=== PATIENT | female | born 1950 | race Caucasian/White ===

== ENCOUNTER 2017-09-28 07:15 | Observation (INO) | payer MEDICARE, OTHER ==
--- NOTE | 2017-09-26 13:27 | Diagnostic Imaging Report ---
PROCEDURE: X-RAY CHEST, TWO VIEWS COMPARISON: 08/24/2010 INDICATIONS: PREOPERATIVE CHEST XRAY FOR CERVICAL SPINE SURGERY FINDINGS: Lungs are well-inflated. No focal airspace consolidation, pleural effusion, or pneumothorax. Scattered linear opacities in the lower lungs likely reflect scar or subsegmental atelectasis. Tortuosity and atherosclerotic calcification of the thoracic aorta. Normal heart size. No pulmonary edema. No acute osseous abnormality. CONCLUSION: No acute cardiopulmonary abnormality. Dictated by: Kaleb Talley M.D. on 09/26/2017 at 13:31 Electronically approved by: Kaleb Talley M.D. on 09/26/2017 at 13:31
[2017-09-26 13:36] LABS: BASOPHILS # (AUTO) 0.1 (0.0-0.1); BASOPHILS % 1.2 % (0.0-1.0); EOSINOPHILS # (AUTO) 0.8 (0.0-0.4); EOSINOPHILS % 8.2 % (0.0-6.0); HEMATOCRIT 43.7 % (34.2-44.1); HEMOGLOBIN 14.7 g/dL (12.0-16.0); LYMPHOCYTES # (AUTO) 3.4 (1.0-3.2); MEAN CORPUSCULAR HEMOGLOBIN 31.6 pg (28-32); MEAN CORPUSCULAR HGB CONC 33.6 g/dL (31-35); MONOCYTES # (AUTO) 0.5 (0.2-0.8); MONOCYTES % 4.9 % (4.4-11.3); NEUTROPHILS # (AUTO) 4.7 (2.1-6.9); NEUTROPHILS % 49.6 % (38.7-80.0); PLATELET COUNT 246 x10e3/uL (140-360); RED BLOOD COUNT 4.65 x10e6/uL (3.6-5.1); RED CELL DISTRIBUTION WIDTH 13.8 % (11.7-14.4)
[2017-09-26 13:53] LABS: ANION GAP 12.8 mmol/L (8-16); BLOOD UREA NITROGEN 10 mg/dL (7-26); BUN/CREATININE RATIO 13 (6-25); CALCIUM 9.2 mg/dL (8.4-10.2); CARBON DIOXIDE 27 mmol/L (22-29); CHLORIDE 107 mmol/L (98-107); CREATININE, SERUM 0.79 mg/dL (0.57-1.11); EST GLOMERULAR FILTRATION RATE > 60 ML/MIN (60-); GLUCOSE 91 mg/dL (74-118); POTASSIUM 3.8 mmol/L (3.5-5.1); SODIUM 143 mmol/L (136-145)
[2017-09-26 14:05] LABS: INR 1.02; PROTHROMBIN TIME 12.6 seconds (11.9-14.5)
[~2017-09-28] VITALS: Ht 149.9 cm; Wt 85.7 kg
[~2017-09-28 07:15] MED LIST: ALLEGRA; AMLODIPINE BESYL5 MG PO; ASPIR 8181 MG PO; BENAZEPRIL; BENAZEPRIL HCL10 MG PO; CLARITIN; CYCLOBENZAPRINE10 MG PO; CYMBALTA60 MG; DEXAMETHASONE SOD PHOS INJ 4 MG/ML VIAL IV SCH; DEXILANT; DICYCLOMINE HCL20 MG PO; FENTANYL PATCH; FUROSEMIDE; GABAPENTIN300 MG PO; HYDROCODONE; HYDROMORPHONE HC4 MG PO; LEVOTHYROXINE; LEVOTHYROXINE100 MCG; LEVOTHYROXINE112 MCG PO; LYRICA; LYRICA150 MG; METOCLOPRAMIDE; METOCLOPRAMIDE10 MG PO; MORPHINE PUMP IM; MORPHINE SULFAT30 M1 PO; NORCO 10-325 T1 EACH PO; NORVASC; PANTOPRAZOLE SO40 MG PO; PROAIR HFA INH8.5 GM; TIZANIDINE HCL4 MG; TRAMADOL; ULTRAM50 MG PO
[2017-09-28] MEDS ORDERED: LIDOCAINE HCL (LTA) 4 ML SOLN ONE (07:22)
[2017-09-28] MEDS ORDERED: ACETAMINOPHEN 1000 MG/100 ML 100 ML IV ONE (07:22)
[2017-09-28] MEDS ORDERED: CEFAZOLIN SOD 1 GM VIAL ONE (08:16)
[2017-09-28] MEDS ORDERED: THROMBIN FOR SOLN 5,000 UNIT VIAL ONE (09:47)
[2017-09-28] MEDS ORDERED: BACITRACIN 50,000 UNIT VIAL ONE (09:47)
[2017-09-28] MEDS ORDERED: BUPIVACAINE 0.5%/EPI 30 ML SDV INJ ONE (09:47)
[2017-09-28] MEDS ORDERED: GELATIN SPONGE SZ 100 ONE (09:47)
[2017-09-28] MEDS: LACTATED RINGER'S 1,000 ML IV SCH ×2 (11:56→21:33)
[2017-09-28] MEDS ORDERED: HYDROMORPHONE 2MG/ML INJ IV PRN (12:00)
[2017-09-28] MEDS ORDERED: ACETAMINOPHEN 325 MG TAB PO PRN (12:00)
[2017-09-28] MEDS ORDERED: PROMETHAZINE HCL (IM) 25 MG/ML VIAL IM PRN (12:00)
[2017-09-28] MEDS ORDERED: OXYCODONE/ACETAMINOPHEN 5-325 1 EACH TABLET PO PRN (12:00)
[2017-09-28] MEDS ORDERED: ZOLPIDEM TARTRATE 5 MG TAB PO PRN (12:00)
[2017-09-28] MEDS ORDERED: ONDANSETRON HCL INJ 2 MG/ML VIAL IV PRN (12:00)
[2017-09-28] MEDS ORDERED: HYDROCODONE/APAP 10MG-325MG TAB PO PRN (12:00)
[2017-09-28] MEDS ORDERED: MAGNESIUM/ALUMINUM/SIMETHICONE 30 ML UDC PO PRN (12:00)
[2017-09-28] MEDS ORDERED: MORPHINE SULFATE 5 MG/ML VIAL IM PRN (12:00)
[2017-09-28] MEDS ORDERED: CARISOPRODOL 350 MG TAB PO PRN (12:00)
[2017-09-28] MEDS ORDERED: ALBUTEROL SULF 0.083% NEB SOLN 3 ML NEB ONE (12:29)
--- NOTE | 2017-09-28 13:24 | Operative Report ---
DATE OF PROCEDURE: September 28, 2017 PREOPERATIVE DIAGNOSIS: C4-C5 spondylosis and spinal stenosis with radiculopathy, M50.121. POSTOPERATIVE DIAGNOSIS: C4-C5 spondylosis and spinal stenosis with radiculopathy, M50.121. PROCEDURES 1. C4-5 anterior cervical diskectomy, microsurgical osteophyte resection and allograft fusion, 01292. 2. Preparation of [employer] cortical cancellous allograft, 13311. 3. C4-C5 anterior cervical plating with Synthes ZPN plate, 90812. ANESTHESIA: General. INDICATIONS: The patient is a woman who has previously undergone a noninstrumented C5-6 fusion in the past. She now presents with large disk osteophyte complex at C4-5 above the level of her previous fusion with cervical radiculopathy and was taken to the operating room for anterior cervical decompression and fusion. PROCEDURE: After induction of general anesthesia, the patient was placed on the operating table in supine position. The right side of the neck was prepped and draped in sterile fashion. The fluoroscopic C-arm was positioned in cross-table lateral orientation. A transverse incision was created on the right side of the neck superimposed on the C4-5 disk space as determined by fluoroscopy. The platysma was divided in line with the incision. A subplatysmal dissection was carried out. An avascular plane of dissection was developed medial to the sternocleidomastoid muscle and was followed medial to the carotid sheath to the anterior border of the cervical spine. The deep cervical fascia was opened. The esophagus was retracted to the left. The attachments of the longus coli muscles to the anterolateral aspects of the vertebral bodies of C4 and C5 were divided. The anterior longitudinal ligament was resected. [place] posts were inserted into C4 and C5. The [place] distractor was used to distract the disk space. The anterior annulus of the disk was incised with a #11 blade. The contents of the C4-5 disk were thoroughly evacuated with angled curets and pituitary rongeurs. The posterior osteophytes were meticulously drilled with a 2-mm cutting bur on a high-speed drill until they were completely removed. The posterior annulus of the disk, the herniated disk material and the posterior longitudinal ligament were resected layer by layer until the dura was fully exposed and decompressed. The medial aspects of the uncinate processes were resected bilaterally to further expose and decompress the origins of the corresponding nerve roots. After satisfactory decompression had been achieved, the endplates were prepared for fusion. The disk space was sized and found to be 8 mm in height. A piece of MTF cortical cancellous allograft measuring 8 mm in thickness was selected and prepared in saline and loaded onto a [employer] ZPN plate. The construct was inserted into C4-5 disk space under distraction and fluoroscopic guidance. The distraction was released. The distraction posts were removed. The plate was then screwed to the endplates of C4 and C5 with 2 pairs of 16-mm screws. All screws were locked. An excellent construct was obtained. The wound was copiously irrigated with Bacitracin solution. Meticulous hemostasis was secured. Retractor was removed. Platysma was closed with 3-0 Vicryl sutures. The skin was closed with 4-0 Monocryl sutures in subcuticular fashion. Steri-Strips and a dressing were applied. The patient was awakened, extubated and taken to the postanesthesia care unit in stable condition. No intraoperative complications were encountered. Estimated blood loss was 10 mL. Job#: [id number]
[2017-09-28] MEDS ORDERED: CEFAZOLIN SOD 1 GM/D5W 50ML 50 ML IV SCH (14:00)
[2017-09-28] MEDS ORDERED: CEFAZOLIN SOD 1 GM VIAL IV SCH (14:00)
[2017-09-28 14:21] VITALS: BP 170/83
[2017-09-28] MEDS: CYCLOBENZAPRINE HCL 10 MG TAB PO SCH ×2 (14:24→22:18)
[2017-09-28] MEDS: GABAPENTIN 300 MG CAP PO SCH ×2 (14:25→18:50)
[2017-09-28] MEDS: TRAMADOL HCL 50 MG TAB PO SCH ×2 (14:25→18:50)
[2017-09-28 15:05] VITALS: BP 170/83
[2017-09-28] MEDS: CEFAZOLIN SOD 1 GM VIAL IV SCH (16:10)
[2017-09-28] MEDS: BENAZEPRIL HCL 10 MG TAB PO SCH (16:10)
[2017-09-28] MEDS ORDERED: GLYCOPYRROLATE INJ 1MG/ 5 ML SYR ONE (17:55)
[2017-09-28] MEDS ORDERED: ROCURONIUM BROMIDE 10 MG/ML 5ML VIAL ONE (17:55)
[2017-09-28] MEDS ORDERED: DEXAMETHASONE SOD PHOS INJ 4 MG/ML VIAL ONE (17:55)
[2017-09-28] MEDS ORDERED: LIDOCAINE HCL 2% LOCAL INJ 5 ML SDV VIAL INJ ONE (17:55)
[2017-09-28] MEDS ORDERED: SEVOFLURANE INHAL SOLN 250 ML PEN BTL ONE (17:55)
[2017-09-28] MEDS ORDERED: NEOSTIGMINE 5 MG/5ML SYR ONE (17:55)
[2017-09-28] MEDS ORDERED: PROPOFOL IV EMULSION 10 MG/ML 20 ML VIAL ONE (17:55)
[2017-09-28] MEDS ORDERED: LIDOCAINE HCL 2% JELLY 5 ML TUBE ONE (17:55)
[2017-09-28] MEDS ORDERED: ONDANSETRON HCL INJ 2 MG/ML VIAL ONE (17:55)
[2017-09-28] MEDS ORDERED: FENTANYL CITRATE/PF 100MCG/2 ML INJ ONE (18:03)
[2017-09-28] MEDS ORDERED: MIDAZOLAM HCL 2 MG/2 ML VIAL ONE (18:03)
[2017-09-28] MEDS ORDERED: GUAIFENESIN/DEXTROMETHORPHAN LIQD 5 ML UDC NG PRN ×2 (18:45→19:15)
[2017-09-28 20:00] VITALS: BP 127/84
[2017-09-28] MEDS: CEPACOL SORE THROAT LOZENGES PO PRN (20:33)
[2017-09-28 20:43] VITALS: BP 127/84
[2017-09-28] MEDS ORDERED: DIPHENHYDRAMINE HCL INJ 50 MG/ML VIAL IV ONE (20:45)
[2017-09-28] MEDS ORDERED: DIPHENHYDRAMINE HCL INJ 50 MG/ML VIAL IV PRN (20:45)
[2017-09-28] MEDS ORDERED: DEXAMETHASONE SOD PHOS INJ 4 MG/ML VIAL IV ONE (20:45)
[2017-09-28] MEDS ORDERED: DEXAMETHASONE SOD PHOS INJ 4 MG/ML VIAL IV SCH (22:00)
[2017-09-29] VITALS: BP 127/68
[2017-09-29] MEDS: TRAMADOL HCL 50 MG TAB PO SCH ×2 (00:37→06:07)
[2017-09-29] MEDS: GABAPENTIN 300 MG CAP PO SCH ×2 (00:37→06:07)
[2017-09-29] MEDS: DEXAMETHASONE SOD PHOS INJ 4 MG/ML VIAL IV SCH ×2 (01:31→06:07)
[2017-09-29] MEDS: CEFAZOLIN SOD 1 GM VIAL IV SCH ×2 (01:31→08:08)
[2017-09-29 04:00] VITALS: BP 107/58
[2017-09-29] MEDS: CYCLOBENZAPRINE HCL 10 MG TAB PO SCH (06:07)
[2017-09-29 08:00] VITALS: BP 120/66
[2017-09-29] MEDS: BENAZEPRIL HCL 10 MG TAB PO SCH (08:08)
[2017-09-29] MEDS: CEPACOL SORE THROAT LOZENGES PO PRN (08:37)
[2017-09-29] MEDS ORDERED: AMLODIPINE BESYLATE 10 MG TAB PO SCH (09:00)
[2017-09-29] MEDS ORDERED: LEVOTHYROXINE SODIUM 112 MCG TAB PO SCH (09:00)
[2017-09-29 09:03] VITALS: BP 120/66
--- NOTE | 2017-09-29 09:46 | Diagnostic Imaging Report ---
PROCEDURE: X-RAY CERVICAL SPINE, TWO VIEWS COMPARISON:None. INDICATIONS:STATUS POST CERVICAL SPINE SURGERY FINDINGS: See conclusion. CONCLUSION: AP and lateral views of the cervical spine from the skull base to C7 show anterior cervical spine disc spacer and oblique screws at C4-C5. Old fusion of C5-C6 is noted. The visualized vertebral bodies are well-aligned. There is mild pre-vertebral soft-tissue swelling consistent with recent surgery. Bethel Rapp D.O. Dictated by: Bethel Rapp D.O. on 09/29/2017 at 9:51 Electronically approved by: Bethel Rapp D.O. on 09/29/2017 at 9:51
== END 2017-09-29 11:30 | disposition home or self-care (01) ==
LOC: OR 07:15 → PACU V 12:03 → IMCU 13:12
PROVIDERS: ADMIT Neurological Surgery; ATTEND Neurological Surgery
DX: M50.121 Cervical disc disorder at C4-C5 level with radiculopathy (principal); I10 Essential (primary) hypertension; E03.9 Hypothyroidism, unspecified; R12 Heartburn; E66.9 Obesity, unspecified; M79.7 Fibromyalgia; G89.29 Other chronic pain; J44.9 Chronic obstructive pulmonary disease, unspecified; K21.9 Gastro-esophageal reflux disease without esophagitis
CPT/HCPCS: 20931; 22551; 22845; 36415; 71046; 72040; 77003; 80048; 85025; 85610; 85730; 86850; 86900; 88304; 93005; G0378 ×2; J0690 ×2; J1100 ×2; J1170; J1200; J2001 ×2; J2250; J2270; J2405 ×2; J3490; J7120

== ENCOUNTER 2018-02-12 14:15 | Inpatient (IN) | payer MEDICARE, OTHER ==
[~2018-02-12] VITALS: Ht 154.9 cm; Wt 87.1 kg
[~2018-02-12 14:15] MED LIST changes: -DEXAMETHASONE SOD PHOS INJ 4 MG/ML VIAL IV SCH
--- OUTSIDE RECORDS SUMMARY | 2018-02-12 14:19 | XMS REPORT | Continuity of Care Document ---
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 [facility] Low back pain<sup>3</sup> Active 10/11/2013 Problem 09/16/2017 Data migrated from [employer] on 11/11/14. [facility] Lumbar radiculopathy<sup>4</sup> Active 10/11/2013 Problem 09/16/2017 Data migrated from [employer] on 11/11/14. [facility] CHRONIC PAIN SYNDROME Active 10/09/2013 [facility] INTRATHECAL PUMP TRIAL, OBSERVATIONAL FO Active 08/26/2013 [facility] 338.4 Active 08/26/2013 [facility] Back pain Active Problem 09/16/2017 [facility] Chronic pain<sup>1</sup> Active Problem 09/16/2017 chronic pain syndrome [facility] Hypertension Active Problem 09/16/2017 [facility] Hypothyroidism Active Problem 09/16/2017 [facility] Pain Active Problem 09/16/2017 [facility] Peripheral neuropathy Active Problem 09/16/2017 [facility] Reflux Active Problem 09/16/2017 [facility] CHRONIC PAIN SYNDROME Active [facility] CERVICAL DISC DISORDER, UNSP, UNSPECIFIE Active [facility] Medications Medication Details Route Status Patient Instructions Ordering Provider Order Date Source Oxycodone Hydrochloride 5 MG Oral Tablet 10 mg, Route: PO, Drug form: TAB, ONCE, Dosing Weight 82.273, kg, PRN Pain Score 7-10, Start date: 11/26/13 18:05:00 Inactive 11/26/2013 [facility] Dilaudid 1 mg, Route: IV, ONCE, Dosing Weight 82.273, kg, PRN Pain, Start date: 11/26/13 18:04:00 Inactive 11/26/2013 [facility] Metoprolol 1 mg, Route: IVP, Q5Min, Dosing Weight 82.273, kg, PRN Other -See Comment, Start date: 11/26/13 17:34:00, Duration: 5 doses or times, Stop date: Limited # of times Inactive 11/26/2013 [facility] Acetaminophen 1,000 mg, Route: IVPB, Drug form: INJ, ONCE, Dosing Weight 82.273, kg, PRN Pain Score 1-3, Start date: 11/26/13 17:34:00, Duration: 1 doses or times, Stop date: Limited # of times Inactive 11/26/2013 [facility] Hydromorphone 0.5 mg, Route: IVP, Q5Min, Dosing Weight 82.273, kg, PRN Pain Score 7-10, Start date: 11/26/13 17:34:00, Duration: 4 doses or times, Stop date: Limited # of times Inactive 11/26/2013 [facility] Ondansetron 4 mg, Route: IVP, ONCE, Dosing Weight 82.273, kg, PRN Nausea & Vomiting, Start date: 11/26/13 17:34:00 Inactive 11/26/2013 [facility] Diphenhydramine 12.5 mg, Route: IVP, Drug form: INJ, Q6H, Dosing Weight 82.273, kg, PRN Itching, Start date: 11/26/13 17:34:00, Duration: 30 day, Stop date: 12/26/13 17:33:00 Inactive 11/26/2013 [facility] Ondansetron 4 MG Oral Tablet [Zofran] 4 mg=1 tab, PO, BID, # 10 tab, 0 Refill(s) Active 11/26/2013 [facility] Acetaminophen 325 MG / Hydrocodone Bitartrate 10 MG Oral Tablet [Downing 10/325] 1-2 tab, PO, Q4-6H, Pain, # 30 tab, 0 Refill(s) Active 11/26/2013 [facility] Cephalexin 500 MG Oral Capsule [Keflex] 500 mg=1 cap, PO, TID, # 30 cap, 0 Refill(s) Active 11/26/2013 [facility] Senna-gen 8.6 mg oral tablet 17.2 mg=2 tab, PO, Bedtime, for constipation, # 100 tab, 0 Refill(s) Active 11/26/2013 [facility] ceFAZolin 2 gm, 50 mL, Route: IVPB, Drug form: INJ, PRE OP, Start date: 11/26/13 2:00:00, Duration: 1 day, Stop date: 11/27/13 1:59:00 Inactive 11/26/2013 [facility] gabapentin 300 MG Oral Capsule 300 mg, 1 cap, Route: PO, Drug form: CAP, Bedtime, Dosing Weight 79.545, kg, Start date: 09/04/13 21:00:00, Duration: 30 day, Stop date: 10/03/13 21:00:00Notes: (Same as: Neurontin) Inactive 09/05/2013 [facility] Dicyclomine 20 mg, 1 tab, Route: PO, Drug form: TAB, TID, Dosing Weight 79.545, kg, Start date: 09/04/13 9:00:00, Duration: 30 day, Stop date: 10/03/13 17:00:00Notes: (Same as: Bentyl) Inactive 09/04/2013 [facility] benazepril 10 mg, Route: PO, Drug form: TAB, BID, Dosing Weight 79.545, kg, Start date: 09/04/13 9:00:00, Duration: 30 day, Stop date: 10/03/13 17:00:00 No Longer Active 09/04/2013 [facility] Amlodipine 5 mg, 1 tab, Route: PO, Drug form: TAB, Daily, Dosing Weight 79.545, kg, Start date: 09/04/13 9:00:00, Duration: 30 day, Stop date: 10/03/13 9:00:00Notes: (Same as: Norvasc) Inactive 09/04/2013 [facility] Prinivil 20 mg, 1 tab, Route: PO, Drug form: TAB, Daily, Start date: 09/04/13 9:00:00, Duration: 30 day, Stop date: 10/03/13 9:00:00Notes: (Same as: Prinivil, Zestril) Inactive 09/04/2013 [facility] pantoprazole 40 mg, 1 tab, Route: PO, Drug form: ECTAB, Daily, Dosing Weight 79.545, kg, Start date: 09/04/13 9:00:00, Duration: 30 day, Stop date: 10/03/13 9:00:00Notes: Tablet should not be chewed or crushed. ( Same as: Protonix) Inactive 09/04/2013 [facility] Metoclopramide 10 MG Oral Tablet 10 mg, 1 tab, Route: PO, Drug form: TAB, TID, Dosing Weight 79.545, kg, Start date: 09/04/13 9:00:00, Duration: 30 day, Stop date: 10/03/13 17:00:00Notes: (Same as: Reglan) Take 30 min before meals Inactive 09/04/2013 [facility] Hydromorphone 4 mg, 2 tab, Route: PO, Drug form: TAB, Q4H, Dosing Weight 79.545, kg, PRN Pain Score 7-10, Start date: 09/03/13 22:35:00, Duration: 30 day, Stop date: 10/03/13 22:34:00Notes: (Same as: Dilaudid) No Longer Active 09/04/2013 [facility] tramadol hydrochloride 50 MG Oral Tablet 50 mg, 1 tab, Route: PO, Drug form: TAB, Q4H, Dosing Weight 79.545, kg, PRN Pain Score 4-6, Start date: 09/03/13 22:35:00, Duration: 30 day, Stop date: 10/03/13 22:34:00Notes: Not to exceed 400mg/day. (Same As: Ultram) No Longer Active 09/04/2013 [facility] tramadol hydrochloride 50 MG Oral Tablet 50 mg=1 tab, PO, Q4H, Pain, # 60 tab, 0 Refill(s) Active 09/04/2013 [facility] gabapentin 300 MG Oral Capsule 300 mg=1 cap, Bedtime, 0 Refill(s) Active 09/04/2013 [facility] hydromorphone 4 mg oral tablet 4 mg=1 tab, PO, Q4H, Pain, 0 Refill(s) Active 09/04/2013 [facility] Calcium Chloride 0.0014 MEQ/ML / Potassium Chloride 0.004 MEQ/ML / Sodium Chloride 0.103 MEQ/ML / Sodium Lactate 0.028 MEQ/ML Injectable Solution 1,000 mL, Rate: 25 ml/hr, Infuse over: 40 hr, Route: IV, Dosing Weight 79.545 kg, Total Volume: 1,000, Start date: 09/03/13 10:57:00, Duration: 30 day, Stop date: 10/03/13 10:56:00 Inactive 09/03/2013 [facility] Morphine 30 mg, 1 tab, Route: PO, Drug form: ERTAB, BID, Dosing Weight 79.545, kg, PRN Pain, Start date: 09/03/13 9:19:00, Duration: 2 day, Stop date: 09/05/13 9:18:00Notes: Do not crush (Same as:Oramorph SR, MS Contin) No Longer Active 09/03/2013 [facility] dicyclomine 20 mg oral tablet 20 mg=1 tab, PO, RTID, # 28 tab, 0 Refill(s) Active 08/29/2013 [facility] morphine 30 mg oral tablet 30 mg=1 tab, PO, BID, Pain, 0 Refill(s) Active 08/29/2013 [facility] pantoprazole 40 mg oral enteric coated tablet 40 mg=1 tab, PO, Daily, # 30 tab, 0 Refill(s) Active 08/29/2013 [facility] benazepril 10 mg oral tablet 10 mg=1 tab, PO, BID, # 30 tab, 0 Refill(s) Active 08/29/2013 [facility] Allergies, Adverse Reactions, Alerts Substance Category Reaction Severity Reaction type Status Date Reported Comments Source iodine<sup>1</sup> Assertion Drug allergy Active 10/09/2013 Data migrated from [employer] on 11/10/14. Originally documented as IODINE. [facility] Adhesive<sup>2</sup> Assertion Drug allergy Active 12/10/2013 Data migrated from [employer] on 05/20/15. Originally documented as ADHESIVE PAPER. [facility] contrast media (iodine-based) Assertion Drug allergy Active [facility] Immunizations Immunization Date Given Site Status Last Updated Comments Source Results Order Name Results Value Reference Range Date Interpretation Comments Source Spine cervical wo contrast MRI Spine cervical wo contrast MRI Clinical Indication: - M50.90 Cervical disc disease. Comparison: None. TECHNIQUE: Multiplanar T1, T2, and STIR weighted MRI of the cervical spine is performed. Full and complete MRI cervical spine without gadolinium contrast exam was performed. Imaging was performed on the 3 Criss magnet. FINDINGS: There is fusion across the C5-C6 disc space, which may be congenital or postsurgical. Otherwise, alignment of the cervical spine is unremarkable. There is no evidence of compression fracture or suspicious marrow replacing lesion. There are multilevel degenerative disc and facet changes, most pronounced at C4- C5 transcribed detail below. There is mild cord compression at C4-C5 without definite evidence of associated cord signal abnormality, allowing for artifact. The paraspinal soft tissues are unremarkable. The neck spaces are symmetric. The major cervical flow voids are intact. The visualized brain parenchyma is unremarkable. There are potential multifocal patchy opacities in the lungs. Chest radiograph is recommended to further assess. SPECIFIC FINDINGS BY LEVEL: C2-C3: There is no significant posterior disc abnormality, facet abnormality, spinal canal stenosis or neural foraminal stenosis. C3-C4: There is posterior disc osteophyte complex and mild left facet arthropathy. This results in mild left neural foraminal stenosis. There is no significant spinal canal stenosis or right neural foraminal stenosis. C4-C5: There is posterior disc osteophyte complex, bilateral uncovertebral hypertrophy, and facet arthropathy. This results in moderate right and severe left neural foraminal stenosis. There is severe spinal canal stenosis with complete effacement of the dorsal and ventral thecal sac and mild cord compression. There is no definite evidence of associated cord signal abnormality, although evaluation is limited by artifact. C5-C6: There is fusion across the intervertebral disc space. There is mild left neural foraminal stenosis. There is no significant spinal canal stenosis or right neural foraminal stenosis. C6-C7: There is posterior disc osteophyte complex, uncovertebral hypertrophy and mild facet arthropathy. There is no significant spinal canal stenosis. There is mild right and moderate left neural foraminal stenosis. C7-T1: There is no significant posterior disc abnormality, spinal canal stenosis or neural foraminal stenosis. IMPRESSION: Degenerative changes of the cervical spine, most pronounced at C4-C5 where there is severe spinal canal stenosis with mild cord compression but no definite evidence of associated cord signal abnormality (noting that evaluation is limited by artifact), moderate right neural foraminal stenosis and severe left neural foraminal stenosis. Findings at other levels, as described above. Consider neurosurgical consultation. Potential multifocal patchy opacities in the lungs. Chest radiograph is recommended to further assess. RECOMMENDATION: Consider neurosurgical consultation. SL: [id number] 09/13/2017 - - Read by: Bipin Herrera MD Dictated Date/time: 09/13/17 10:45 Electronically Signed by: Bipin Herrera MD 09/13/17 11:44 FINAL REPORT [facility] Abdomen AP DX Abdomen AP DX PROCEDURE: Supine abdomen radiographs, 2 views. INDICATION: MRI clearance of pain pump. COMPARISON: None. FINDINGS: Pain pump overlies the subcutaneous tissues of the lateral right lower abdomen, upper pelvis. There is a catheter coursing towards the lumbar spine, L3 region. Surgical clips in the right abdomen. Bowel gas pattern and soft tissue outlines of the abdomen pelvis appear unremarkable. IMPRESSION: 1. No acute abdominal abnormality identified. SL: [id number] 09/13/2017 - - Read by: Yannick Candelaria MD Dictated Date/time: 09/13/17 09:05 Electronically Signed by: Yannick Candelaria MD 09/13/17 09:07 FINAL REPORT [facility] Brain wo contrast MRI Brain wo contrast MRI EXAM: MRI BRAIN WITHOUT CONTRAST DATE: 08/16/2017 12:33 PM CDT INDICATION: - I63.30 Cerebral infarction due to thrombosis of unspecified cerebral artery ADDITIONAL INFORMATION AND CONTRAST: None. COMPARISON: None. TECHNIQUE: Multiplanar, mutisequence MRI of the brain without contrast. FINDINGS: Motion artifact degrades image quality. Diffusion weighted images demonstrate no focal signal abnormality. There are no significant foci of T2/FLAIR signal abnormality within the white or nichole matter. No acute intracranial hemorrhage detected. The ventricles are normal in size and symmetric. No extra-axial fluid collection identified. Nichole- white distinction is preserved. No mass lesion or midline shift detected. The intracranial arterial and venous structures demonstrate normal flow voids. The visible paranasal sinuses and skull base are unremarkable. IMPRESSION: 1. Limited study as above. No definite acute infarct or intracranial hemorrhage detected. SL: [id number] 08/16/2017 - - Read by: Cm Casey MD Dictated Date/time: 08/16/17 14:20 Electronically Signed by: Cm Casey MD 08/16/17 14:23 FINAL REPORT [facility] Carotid artery Doppler bilat US Carotid artery Doppler bilat US Patient Name: JOSE TIMMONS : 1950; Age: 66 years Female MR: [id number] Study: Carotid artery Doppler bilat US 08/16/2017 12:22 PM CDT CLINICAL INDICATION: - carotid stenosis. COMPARISON: None TECHNIQUE: Nichole-scale, color Doppler and spectral Doppler of the carotid arteries was performed. Any reported ICA stenoses indirectly references the distal internal carotid diameter as the denominator for the stenosis measurement, utilizing consensus panel criteria. FINDINGS: RIGHT: Mild calcified plaque within the carotid bulb ICA PSV 85 cm/sec CCA PSV 103 cm/sec ICA/CCA ratio 0.8 Vertebral flow is antegrade. External carotid artery is patent. LEFT: Minimal calcified plaque within the carotid bulb ICA PSV 117 cm/sec CCA PSV 118 cm/sec ICA/CCA ratio 0.99 Vertebral flow is antegrade. External carotid artery is patent. IMPRESSION: RIGHT: ICA stenosis <50% by velocity criteria. LEFT: ICA stenosis <50% by velocity criteria. Consensus panel Doppler US criteria for diagnosis of ICA stenosis: Stenosis (%) ICA PSV (cm/sec) ICA/CCA ratio <50 <125 <2.0 50-69 125-230 2.0-4.0 >70 but less than >230 >4.0 near occlusion Near occlusion High, low, or Variable undetectable SL: [id number] 08/16/2017 - - Read by: Fatemeh Ashton MD Dictated Date/time: 08/16/17 13:00 Electronically Signed by: Fatemeh Ashton MD 08/16/17 13:01 FINAL REPORT [facility] URINE AND STOOL UA Urobilinogen <=1.0 mg/dL 0.1 - 1.0 11/26/2013 [facility] URINE AND STOOL UA RBC 7 /HPF 0 - 2 11/26/2013 [facility] URINE AND STOOL UA Bacteria Occasional /HPF None Seen /HPF 11/26/2013 [facility] URINE AND STOOL UA WBC 56 /HPF 0 - 5 11/26/2013 [facility] URINE AND STOOL UA Mucus Few /LPF None Seen /LPF 11/26/2013 [facility] URINE AND STOOL Micro? Performed *NA* (11/26/13 1:30 PM) 11/26/2013 [facility] URINE AND STOOL UA Color Yellow *NA* (11/26/13 1:30 PM) Yellow 11/26/2013 [facility] URINE AND STOOL UA Turbidity Slight *ABN* (11/26/13 1:30 PM) Clear 11/26/2013 [facility] URINE AND STOOL UA Spec Grav 1.011 <=1.030 11/26/2013 [facility] URINE AND STOOL UA Glucose Negative mg/dL Negative mg/dL 11/26/2013 [facility] URINE AND STOOL UA Ketones Negative mg/dL Negative mg/dL 11/26/2013 [facility] URINE AND STOOL UA Bili Negative *NA* (11/26/13 1:30 PM) Negative 11/26/2013 [facility] URINE AND STOOL UA Blood Small *ABN* (11/26/13 1:30 PM) Negative 11/26/2013 [facility] URINE AND STOOL UA Leuk Est Large *ABN* (11/26/13 1:30 PM) Negative 11/26/2013 [facility] URINE AND STOOL UA Sq Epi Many /LPF Few /LPF 11/26/2013 [facility] URINE AND STOOL UA Nitrite Negative (11/26/13 1:30 PM) Negative 11/26/2013 [facility] URINE AND STOOL UA pH 6.5 5.0 - 8.0 11/26/2013 [facility] URINE AND STOOL UA Protein Negative mg/dL Negative mg/dL 11/26/2013 [facility] BLOOD BANK RESULTS Antibody Scrn Negative (11/26/13 1:20 PM) 11/26/2013 [facility] BLOOD BANK RESULTS ABO/Rh O POS 11/26/2013 [facility] HEMATOLOGY MCH 30.5 pg 27.0 - 31.0 11/26/2013 [facility] HEMATOLOGY Platelet 262 K/CMM 133 - 450 11/26/2013 [facility] HEMATOLOGY MPV 7.8 fL 7.4 - 10.4 11/26/2013 [facility] HEMATOLOGY RDW 14.2 % 11.5 - 14.5 11/26/2013 [facility] HEMATOLOGY MCV 91.7 fL 80.0 - 98.0 11/26/2013 [facility] HEMATOLOGY MCHC 33.2 g/dL 32.0 - 36.0 11/26/2013 [facility] HEMATOLOGY Hct 42.2 % 36.0 - 48.0 11/26/2013 [facility] HEMATOLOGY Hgb 14.0 g/dL 12.0 - 16.0 11/26/2013 [facility] HEMATOLOGY RBC 4.61 M/CMM 4.20 - 5.40 11/26/2013 [facility] HEMATOLOGY WBC 9.5 K/CMM 3.7 - 10.4 11/26/2013 [facility] HEMATOLOGY Basophils # 0.1 K/CMM 0.0 - 0.2 11/26/2013 [facility] HEMATOLOGY Eosinophils # 0.4 K/CMM 0.0 - 0.5 11/26/2013 [facility] HEMATOLOGY Segs-Bands # 5.7 K/CMM 1.5 - 8.1 11/26/2013 [facility] HEMATOLOGY Monocytes # 0.4 K/CMM 0.0 - 0.8 11/26/2013 [facility] HEMATOLOGY Lymphocytes # 2.9 K/CMM 1.0 - 5.5 11/26/2013 [facility] HEMATOLOGY Basophils 1.2 % 0.0 - 1.0 11/26/2013 [facility] HEMATOLOGY Segs 59.7 % 45.0 - 75.0 11/26/2013 [facility] HEMATOLOGY Eosinophils 3.8 % 0.0 - 4.0 11/26/2013 [facility] HEMATOLOGY Monocytes 4.5 % 2.0 - 12.0 11/26/2013 [facility] HEMATOLOGY Lymphocytes 30.8 % 20.0 - 40.0 11/26/2013 [facility] HEMATOLOGY INR 0.97 0.85 - 1.17 11/26/2013 3Interpretive Data: RECOMMENDED RANGES FOR PROTIME INR: 2.0-3.0 for most medical and surgical thromboembolic states. 2.5-3.5 for artificial heart valves and recurrent embolism. INR SHOULD BE USED ONLY FOR PATIENTS ON STABLE ANTICOAGULANT THERAPY. [facility] HEMATOLOGY PTT 38.5 s 22.9 - 35.8 11/26/2013 5Interpretive Data: Heparin Therapeutic Range: 57 - 92 Seconds [facility] HEMATOLOGY PT 12.9 s 12.0 - 14.7 11/26/2013 [facility] ELECTROLYTES AGAP 11.4 meq/L 10.0 - 20.0 11/06/2013 [facility] ELECTROLYTES Calcium Lvl 9.3 mg/dL 8.5 - 10.5 11/06/2013 [facility] ELECTROLYTES CO2 28 meq/L 24 - 32 11/06/2013 [facility] ELECTROLYTES Chloride Lvl 105 meq/L 95 - 109 11/06/2013 [facility] ELECTROLYTES BUN 10 mg/dL 7 - 22 11/06/2013 [facility] ELECTROLYTES Glucose Lvl 83 mg/dL 70 - 99 11/06/2013 2Interpretive Data: Adult reference range values reflect the clinical guidelines of the [place] [employer]. [facility] ELECTROLYTES Potassium Lvl 4.4 meq/L 3.5 - 5.1 11/06/2013 [facility] ELECTROLYTES Sodium Lvl 140 meq/L 135 - 145 11/06/2013 [facility] ELECTROLYTES Creatinine Lvl 0.9 mg/dL 0.5 - 1.4 11/06/2013 [facility] ELECTROLYTES eGFR 69 mL/min/1.73m2 11/06/2013 1Result Comment: The eGFR is calculated using the CKD-EPI formula. In most young, healthy individuals the eGFR will be >90 mL/min/1.73m2. The eGFR declines with age. An eGFR of 60-89 may be normal in some populations, particularly the elderly, for whom the CKD-EPI formula has not been extensively validated. Use of the eGFR is not recommended in the following populations: Individuals with unstable creatinine concentrations, including patients and those with serious co-morbid conditions. Patients with extremes in muscle mass or diet. The data above are obtained from the National Kid[employer] Disease Education Program (NKDEP) which additionally recommends that when the eGFR is used in patients with extremes of body mass index for purposes of drug dosing, the eGFR should be multiplied by the estimated BMI. [facility] HEMATOLOGY Eosinophils 4.8 % 0.0 - 4.0 11/06/2013 [facility] HEMATOLOGY Basophils 0.7 % 0.0 - 1.0 11/06/2013 [facility] HEMATOLOGY Lymphocytes 33.6 % 20.0 - 40.0 11/06/2013 [facility] HEMATOLOGY Monocytes 5.3 % 2.0 - 12.0 11/06/2013 [facility] HEMATOLOGY Segs 55.6 % 45.0 - 75.0 11/06/2013 [facility] HEMATOLOGY Segs-Bands # 6.5 K/CMM 1.5 - 8.1 11/06/2013 [facility] HEMATOLOGY Eosinophils # 0.6 K/CMM 0.0 - 0.5 11/06/2013 [facility] HEMATOLOGY Monocytes # 0.6 K/CMM 0.0 - 0.8 11/06/2013 [facility] HEMATOLOGY Lymphocytes # 3.9 K/CMM 1.0 - 5.5 11/06/2013 [facility] HEMATOLOGY Basophils # 0.1 K/CMM 0.0 - 0.2 11/06/2013 [facility] HEMATOLOGY Platelet 291 K/CMM 133 - 450 11/06/2013 [facility] HEMATOLOGY MPV 8.2 fL 7.4 - 10.4 11/06/2013 [facility] HEMATOLOGY RDW 14.3 % 11.5 - 14.5 11/06/2013 [facility] HEMATOLOGY MCHC 32.8 g/dL 32.0 - 36.0 11/06/2013 [facility] HEMATOLOGY Hct 43.7 % 36.0 - 48.0 11/06/2013 [facility] HEMATOLOGY MCH 30.2 pg 27.0 - 31.0 11/06/2013 [facility] HEMATOLOGY MCV 92.3 fL 80.0 - 98.0 11/06/2013 [facility] HEMATOLOGY RBC 4.73 M/CMM 4.20 - 5.40 11/06/2013 [facility] HEMATOLOGY Hgb 14.3 g/dL 12.0 - 16.0 11/06/2013 [facility] HEMATOLOGY WBC 11.7 K/CMM 3.7 - 10.4 11/06/2013 [facility] HEMATOLOGY PTT 35.2 s 22.9 - 35.8 11/06/2013 6Interpretive Data: Heparin Therapeutic Range: 57 - 92 Seconds [facility] HEMATOLOGY PT 12.1 s 12.0 - 14.7 11/06/2013 [facility] HEMATOLOGY INR 0.90 0.85 - 1.17 11/06/2013 4Interpretive Data: RECOMMENDED RANGES FOR PROTIME INR: 2.0-3.0 for most medical and surgical thromboembolic states. 2.5-3.5 for artificial heart valves and recurrent embolism. INR SHOULD BE USED ONLY FOR PATIENTS ON STABLE ANTICOAGULANT THERAPY. [facility] Vital Signs Vital Sign Value Date Comments Source Diastolic (mm Hg) 73 11/26/2013 [facility] Systolic (mm Hg) 136 11/26/2013 [facility] Respitory Rate 20 11/26/2013 [facility] Heart Rate 99 11/26/2013 [facility] Systolic (mm Hg) 140 11/26/2013 [facility] Diastolic (mm Hg) 59 11/26/2013 [facility] Respitory Rate 12 11/26/2013 [facility] Diastolic (mm Hg) 82 11/26/2013 [facility] Systolic (mm Hg) 141 11/26/2013 [facility] Respitory Rate 13 11/26/2013 [facility] Heart Rate 83 11/26/2013 [facility] BMI Calculated 34.27 11/07/2013 [facility] Height 154.94 cm 11/07/2013 [facility] Weight 82.273 11/07/2013 [facility] Respitory Rate 19 09/04/2013 [facility] Diastolic (mm Hg) 60 09/04/2013 [facility] Systolic (mm Hg) 104 09/04/2013 [facility] Temperature Oral (F) 98.1 F 09/04/2013 [facility] Heart Rate 73 09/04/2013 [facility] Diastolic (mm Hg) 70 09/04/2013 [facility] Systolic (mm Hg) 105 09/04/2013 [facility] Respitory Rate 18 09/04/2013 [facility] Heart Rate 67 09/04/2013 [facility] Temperature Oral (F) 98.1 F 09/04/2013 [facility] Heart Rate 76 09/04/2013 [facility] Respitory Rate 17 09/04/2013 [facility] Systolic (mm Hg) 119 09/04/2013 [facility] Diastolic (mm Hg) 64 09/04/2013 [facility] Temperature Oral (F) 99.1 F 09/04/2013 [facility] Weight 79.545 08/29/2013 [facility] BMI Calculated 33.13 08/29/2013 [facility] Height 154.94 cm 08/29/2013 [facility] Encounters Location Location Details Encounter Type Encounter Number Reason For Visit Attending Provider ADM Date DC Date Status Source [facility] OBS Observation Patient [id number] Martir Micheline 09/03/2013 09/04/2013 [facility] OBS Day Surgery [id number] Joao Rangel Jr 11/26/2013 11/27/2013 [facility] [id number] Nahed Palvadi 08/16/2017 08/17/2017 [facility] Outpatient [id number] Nahed Palvadi 09/13/2017 09/14/2017 [facility] Procedures Procedure Code Date Perfomer Comments Source Cholecystectomy [id number] [facility] Esophagogastroduodenoscopy [id number] [facility] Hysterectomy [id number] [facility] Operation [id number] [facility] Suspension of bladder [id number] [facility]
[2018-02-12] MEDS ORDERED: IPRATROPIUM BROMIDE 0.02% 2.5 ML NEB NEB STA (14:34)
[2018-02-12] MEDS ORDERED: METHYLPREDNISOLONE SOD SUCC 125 MG/2ML VIAL IV ONE (14:45)
[2018-02-12] MEDS ORDERED: ALBUTEROL SULF 0.083% NEB SOLN 3 ML NEB NEB ONE (14:45)
--- NOTE | 2018-02-12 15:40 | Diagnostic Imaging Report ---
EXAM: XR CHEST 1 VIEW DATE: 02/12/2018 2:34 PM INDICATION: Fever COMPARISON: 09/26/2017, no report available FINDINGS: Lines and Tubes: None Heart and Mediastinum: No acute cardiomediastinal findings. Lungs and Pleura: Ill-defined perihilar and basilar opacities poorly evaluated due to underpenetration and body habitus. Not significantly changed. Bones and Soft Tissues: Calcific densities adjacent to right humeral head suggests sequela of calcific tendinosis. IMPRESSION: 1. Ill-defined basilar opacity similar to previous study statistically atelectasis/chronic lung changes. Developing infectious process difficult to exclude. Signed by: Dr. Miguelito Morrison MD on 02/12/2018 3:37 PM
[2018-02-12] MEDS ORDERED: ALBUTEROL/IPRATROPIUM 3 ML NEB NEB PRN (16:00)
[2018-02-12 16:06] LABS: BASOPHILS # (AUTO) 0.1 (0.0-0.1); BASOPHILS % 0.5 % (0.0-1.0); EOSINOPHILS # (AUTO) 0.5 (0.0-0.4); EOSINOPHILS % 3.9 % (0.0-6.0); HEMATOCRIT 46.4 % (34.2-44.1); HEMOGLOBIN 15.4 g/dL (12.0-16.0); LYMPHOCYTES % 23.2 % (18.0-39.1); MEAN CORPUSCULAR HEMOGLOBIN 31.2 pg (28-32); MEAN CORPUSCULAR HGB CONC 33.2 g/dL (31-35); MEAN CORPUSCULAR VOLUME 94.1 fL (81-99); MONOCYTES # (AUTO) 0.8 (0.2-0.8); MONOCYTES % 6.3 % (4.4-11.3); NEUTROPHILS # (AUTO) 8.4 (2.1-6.9); NEUTROPHILS % 65.8 % (38.7-80.0); PLATELET COUNT 308 x10e3/uL (140-360); RED BLOOD COUNT 4.93 x10e6/uL (3.6-5.1); RED CELL DISTRIBUTION WIDTH 13.7 % (11.7-14.4)
[2018-02-12 16:44] LABS: INR 0.87; PARTIAL THROMBOPLASTIN TIME 37.2 seconds (23.8-35.5); PROTHROMBIN TIME 12.7 seconds (11.9-14.5)
[2018-02-12 17:22] LABS: ALANINE AMINOTRANSFERASE 14 IU/L (0-55); ALBUMIN 3.7 g/dL (3.5-5.0); ALKALINE PHOSPHATASE 89 IU/L (40-150); ANION GAP 14.7 mmol/L (8-16); BLOOD UREA NITROGEN 13 mg/dL (7-26); BUN/CREATININE RATIO 15 (6-25); CALCIUM 9.6 mg/dL (8.4-10.2); CARBON DIOXIDE 26 mmol/L (22-29); CHLORIDE 103 mmol/L (98-107); CREATINE KINASE 58 IU/L (29-168); CREATININE, SERUM 0.87 mg/dL (0.57-1.11); EST GLOMERULAR FILTRATION RATE > 60 ML/MIN (60-); GLUCOSE 114 mg/dL (74-118); POTASSIUM 3.7 mmol/L (3.5-5.1); SODIUM 140 mmol/L (136-145)
[2018-02-12] MEDS ORDERED: SPIRONOLACTONE25 MG PO (17:44)
[2018-02-12] MEDS ORDERED: METHYLPREDNISOLONE SOD SUCC 125 MG/2ML VIAL ONE (18:09)
[2018-02-12] MEDS ORDERED: ALBUTEROL/IPRATROPIUM 3 ML NEB NEB ONE (18:15)
[2018-02-12] MEDS: ALBUTEROL/IPRATROPIUM 3 ML NEB NEB SCH ×2 (18:27→20:45)
[2018-02-12] MEDS ORDERED: CEFTRIAXONE SOD 1 GM VIAL IM ONE (19:00)
[2018-02-12 19:25] VITALS: BP 104/62
[2018-02-12] MEDS: GABAPENTIN 300 MG CAP PO SCH (20:40)
[2018-02-12] MEDS: CYCLOBENZAPRINE HCL 10 MG TAB PO SCH (21:16)
[2018-02-12] MEDS: TRAMADOL HCL 50 MG TAB PO SCH (21:30)
[2018-02-13] VITALS (10 sets, daily range): BP systolic 106–127; BP diastolic 49–59
[2018-02-13] MEDS ORDERED: TRAMADOL HCL 50 MG TAB PO SCH
[2018-02-13] MEDS: CYCLOBENZAPRINE HCL 10 MG TAB PO SCH ×3 (06:01→20:24)
[2018-02-13] MEDS: LEVOTHYROXINE SODIUM 112 MCG TAB PO SCH (06:01)
--- NOTE | 2018-02-13 06:56 | Diagnostic Imaging Report ---
EXAM: CHEST SINGLE (PORTABLE), AP 1 view INDICATION: Shortness of breath COMPARISON: AP view of the chest February 12, 2018 FINDINGS: LINES/TUBES: None LUNGS: Bilateral bronchial thickening without consolidation. PLEURA: No effusions or pneumothorax. HEART AND MEDIASTINUM: Normal size and contour. BONES AND SOFT TISSUES: No acute findings. IMPRESSION: Bilateral bronchial thickening without consolidation. Signed by: Dr. Keshia Serrano M.D. on 02/13/2018 6:53 AM
[2018-02-13 07:02] LABS: ALANINE AMINOTRANSFERASE 12 IU/L (0-55); ALBUMIN 3.2 g/dL (3.5-5.0); ALBUMIN/GLOBULIN RATIO 0.9 (0.8-2.0); ALKALINE PHOSPHATASE 76 IU/L (40-150); ANION GAP 12.5 mmol/L (8-16); BLOOD UREA NITROGEN 9 mg/dL (7-26); BUN/CREATININE RATIO 12 (6-25); CALCIUM 9.1 mg/dL (8.4-10.2); CARBON DIOXIDE 26 mmol/L (22-29); CHLORIDE 102 mmol/L (98-107); CREATININE, SERUM 0.76 mg/dL (0.57-1.11); EST GLOMERULAR FILTRATION RATE > 60 ML/MIN (60-); GLUCOSE 140 mg/dL (74-118); POTASSIUM 3.5 mmol/L (3.5-5.1); SODIUM 137 mmol/L (136-145)
[2018-02-13] MEDS: ALBUTEROL/IPRATROPIUM 3 ML NEB NEB SCH ×5 (07:29→23:30)
[2018-02-13] MEDS: BENAZEPRIL HCL 10 MG TAB PO SCH ×2 (09:03→18:27)
[2018-02-13] MEDS: SPIRONOLACTONE 25 MG TAB PO SCH (09:03)
[2018-02-13] MEDS: ASPIRIN 81 MG CHEW TAB PO SCH (09:03)
[2018-02-13] MEDS: GABAPENTIN 300 MG CAP PO SCH ×3 (09:03→20:24)
[2018-02-13] MEDS: AMLODIPINE BESYLATE 5 MG TAB PO SCH (09:03)
[2018-02-13] MEDS: TRAMADOL HCL 50 MG TAB PO SCH (09:15)
[2018-02-13] MEDS: CEFTRIAXONE SOD 1 GM VIAL IV SCH (12:40)
[2018-02-13] MEDS: AZITHROMYCIN 250MG/NS 100 ML 100 ML IV SCH (12:45)
[2018-02-14] VITALS (9 sets, daily range): BP systolic 102–123; BP diastolic 51–71
[2018-02-14] MEDS: ALBUTEROL/IPRATROPIUM 3 ML NEB NEB SCH ×3 (02:50→14:00)
[2018-02-14] MEDS: CYCLOBENZAPRINE HCL 10 MG TAB PO SCH ×3 (05:17→21:45)
[2018-02-14] MEDS: TRAMADOL HCL 50 MG TAB PO SCH ×3 (05:18→17:06)
[2018-02-14] MEDS: LEVOTHYROXINE SODIUM 112 MCG TAB PO SCH (05:18)
[2018-02-14] MEDS: BENAZEPRIL HCL 10 MG TAB PO SCH ×2 (09:00→16:36)
[2018-02-14] MEDS: AMLODIPINE BESYLATE 5 MG TAB PO SCH (09:00)
[2018-02-14] MEDS: GABAPENTIN 300 MG CAP PO SCH ×3 (09:40→21:45)
[2018-02-14] MEDS: ASPIRIN 81 MG CHEW TAB PO SCH (09:40)
[2018-02-14] MEDS: CEFTRIAXONE SOD 1 GM VIAL IV SCH (09:40)
[2018-02-14] MEDS: SPIRONOLACTONE 25 MG TAB PO SCH (09:40)
[2018-02-14] MEDS ORDERED: SODIUM CHLORIDE 0.9% 250ML 250 ML ONE (11:03)
[2018-02-14] MEDS: AZITHROMYCIN 250MG/NS 100 ML 100 ML IV SCH (11:19)
[2018-02-14] MEDS: LEVALBUTEROL HCL SOLN NEBU 1.25 MG/3 ML NEB INH SCH (19:35)
[2018-02-14] MEDS: HYDROCODONE/CHLORPHENIRAMINE 5 ML LIQCR PO SCH (21:45)
[2018-02-15] VITALS (8 sets, daily range): BP systolic 107–133; BP diastolic 51–61
[2018-02-15] MEDS: LEVALBUTEROL HCL SOLN NEBU 1.25 MG/3 ML NEB INH SCH ×4 (01:40→22:00)
[2018-02-15] MEDS: LEVOTHYROXINE SODIUM 112 MCG TAB PO SCH (05:47)
[2018-02-15] MEDS: CYCLOBENZAPRINE HCL 10 MG TAB PO SCH ×3 (05:47→21:02)
[2018-02-15] MEDS: TRAMADOL HCL 50 MG TAB PO SCH ×4 (05:47→17:58)
[2018-02-15] MEDS: BENAZEPRIL HCL 10 MG TAB PO SCH ×2 (09:00→17:18)
[2018-02-15] MEDS: CEFTRIAXONE SOD 1 GM VIAL IV SCH (09:46)
[2018-02-15] MEDS: GABAPENTIN 300 MG CAP PO SCH ×3 (09:46→21:01)
[2018-02-15] MEDS: AMLODIPINE BESYLATE 5 MG TAB PO SCH (09:46)
[2018-02-15] MEDS: SPIRONOLACTONE 25 MG TAB PO SCH (09:46)
[2018-02-15] MEDS: HYDROCODONE/CHLORPHENIRAMINE 5 ML LIQCR PO SCH ×2 (09:46→21:01)
[2018-02-15] MEDS: ASPIRIN 81 MG CHEW TAB PO SCH (09:46)
--- NOTE | 2018-02-15 12:15 | Diagnostic Imaging Report ---
Frontal and lateral views of the chest. HISTORY: Shortness of breath, COPD exacerbation COMPARISON: Chest radiograph February 12, 2018. DISCUSSION: Multiple overlying monitoring leads. Lungs: Increased bibasilar volume loss, right greater than left. Prominence of the central peribronchial interstitial markings. No evidence of a consolidative pneumonia or pulmonary alveolar edema. Pleura: Trace bilateral blunting of the costophrenic angles. Heart and mediastinum: The cardiac silhouette appears unremarkable. Mild prominence of the central pulmonary vasculature. Bones: Right convex curvature of the thoracic spine, compatible with positioning. Incompletely evaluated cervical fixation hardware. IMPRESSION: 1. Right greater than left basilar atelectasis. 2. Findings compatible with a nonspecific bronchitis. 3. Bilateral trace pleural thickening versus trace pleural effusions. Signed by: Dr. Rodrigo Munoz D.O., M.M.M. on 02/15/2018 12:12 PM
[2018-02-15] MEDS: AZITHROMYCIN 250MG/NS 100 ML 100 ML IV SCH (12:56)
[2018-02-15] MEDS: METHYLPREDNISOLONE SOD SUCC 40 MG/ML VIAL IV SCH (21:01)
[2018-02-16] VITALS (7 sets, daily range): BP systolic 93–128; BP diastolic 52–68
[2018-02-16] MEDS: LEVALBUTEROL HCL SOLN NEBU 1.25 MG/3 ML NEB INH SCH ×4 (02:15→20:15)
[2018-02-16 05:52] LABS: BASOPHILS % 0.2 % (0.0-1.0); HEMATOCRIT 41.6 % (34.2-44.1); LYMPHOCYTES # (AUTO) 0.9 (1.0-3.2); LYMPHOCYTES % 10.9 % (18.0-39.1); MEAN CORPUSCULAR HEMOGLOBIN 30.9 pg (28-32); MEAN CORPUSCULAR HGB CONC 32.7 g/dL (31-35); MEAN CORPUSCULAR VOLUME 94.5 fL (81-99); MONOCYTES # (AUTO) 0.1 (0.2-0.8); MONOCYTES % 0.7 % (4.4-11.3); NEUTROPHILS # (AUTO) 7.4 (2.1-6.9); NEUTROPHILS % 87.7 % (38.7-80.0); PLATELET COUNT 305 x10e3/uL (140-360); RED CELL DISTRIBUTION WIDTH 13.3 % (11.7-14.4)
[2018-02-16] MEDS: TRAMADOL HCL 50 MG TAB PO SCH ×4 (05:58→16:39)
[2018-02-16] MEDS: LEVOTHYROXINE SODIUM 112 MCG TAB PO SCH (05:58)
[2018-02-16 05:59] LABS: HEMOGLOBIN 13.6 g/dL (12.0-16.0)
[2018-02-16] MEDS: CYCLOBENZAPRINE HCL 10 MG TAB PO SCH ×2 (06:01→14:17)
[2018-02-16 06:14] LABS: ANION GAP 13.5 mmol/L (8-16); BLOOD UREA NITROGEN 12 mg/dL (7-26); BUN/CREATININE RATIO 14 (6-25); CALCIUM 9.6 mg/dL (8.4-10.2); CARBON DIOXIDE 26 mmol/L (22-29); CHLORIDE 106 mmol/L (98-107); CREATININE, SERUM 0.86 mg/dL (0.57-1.11); EST GLOMERULAR FILTRATION RATE > 60 ML/MIN (60-); GLUCOSE 190 mg/dL (74-118); POTASSIUM 4.5 mmol/L (3.5-5.1); SODIUM 141 mmol/L (136-145)
[2018-02-16] MEDS ORDERED: ONDANSETRON HCL INJ 2 MG/ML VIAL IV PRN (07:45)
[2018-02-16] MEDS: SPIRONOLACTONE 25 MG TAB PO SCH (08:28)
[2018-02-16] MEDS: HYDROCODONE/CHLORPHENIRAMINE 5 ML LIQCR PO SCH ×2 (08:28→20:58)
[2018-02-16] MEDS: METHYLPREDNISOLONE SOD SUCC 40 MG/ML VIAL IV SCH ×2 (08:28→20:58)
[2018-02-16] MEDS: AMLODIPINE BESYLATE 5 MG TAB PO SCH (08:28)
[2018-02-16] MEDS: GABAPENTIN 300 MG CAP PO SCH ×3 (08:28→20:58)
[2018-02-16] MEDS: ASPIRIN 81 MG CHEW TAB PO SCH (08:28)
[2018-02-16] MEDS: BENAZEPRIL HCL 10 MG TAB PO SCH ×2 (08:28→16:39)
[2018-02-16] MEDS: CEFTRIAXONE SOD 1 GM VIAL IV SCH (08:28)
[2018-02-16] MEDS: AZITHROMYCIN 250MG/NS 100 ML 100 ML IV SCH (11:34)
[2018-02-16] MEDS ORDERED: LACTULOSE SYRUP 20 GM/30 ML UDC PO PRN (15:00)
== END 2018-02-16 20:06 | DRG 190 ==
LOC: ER 14:15 → ERHOLD 15:48 → IMCU 02-13 02:29 → OBSVTOIN 02-14 17:08 → MED/SURG 02-14 21:46
DX: J44.0 Chronic obstructive pulmonary disease with (acute) lower respiratory infection (principal); J18.9 Pneumonia, unspecified organism; J45.901 Unspecified asthma with (acute) exacerbation; J44.1 Chronic obstructive pulmonary disease with (acute) exacerbation; E11.9 Type 2 diabetes mellitus without complications; I10 Essential (primary) hypertension; E03.9 Hypothyroidism, unspecified; J20.9 Acute bronchitis, unspecified
CPT/HCPCS: 36415; 71045; 71046; 80048; 80053; 82550; 82553; 83880; 84484; 85025; 85610; 85730; 93005; 94640; 94760; 96367; 96376; 99284; G0378; J0696; J2405; J2920; J2930; J7050

== ENCOUNTER 2018-10-02 09:25 | Emergency (ER) | payer MEDICARE, OTHER ==
[~2018-10-02] VITALS: Ht 154.9 cm; Wt 81.6 kg
[~2018-10-02 09:25] MED LIST changes: +SPIRONOLACTONE25 MG PO
--- OUTSIDE RECORDS SUMMARY | 2018-10-02 09:31 | XMS REPORT | Continuity of Care Document ---
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 [facility] Low back pain3 Active 10/11/2013 Problem 09/16/2017 Data migrated from [facility] on 11/11/14. [facility] Lumbar radiculopathy4 Active 10/11/2013 Problem 09/16/2017 Data migrated from [facility] on 11/11/14. [facility] CHRONIC PAIN SYNDROME Active 10/09/2013 [facility] 338.4 Active 08/26/2013 [facility] INTRATHECAL PUMP TRIAL, OBSERVATIONAL FO Active 08/26/2013 [facility] Back pain Active Problem 09/16/2017 [facility] Chronic pain1 Active Problem 09/16/2017 chronic pain syndrome [facility] Hypertension Active Problem 09/16/2017 [facility] Hypothyroidism Active Problem 09/16/2017 [facility] [place] Pain Active Problem 09/16/2017 [facility] Peripheral neuropathy Active Problem 09/16/2017 [facility] Reflux Active Problem 09/16/2017 [facility] CHRONIC PAIN SYNDROME Active [facility] CERVICAL DISC DISORDER, UNSP, UNSPECIFIE Active [facility] Medications Medication Details Route Status Patient Instructions Ordering Provider Order Date Source Oxycodone Hydrochloride 5 MG Oral Tablet 10 mg, Route: PO, Drug form: TAB, ONCE, Dosing Weight 82.273, kg, PRN Pain Score 7-10, Start date: 11/26/13 18:05:00 Inactive 11/26/2013 [facility] Dilaudid 1 mg, Route: IV, ONCE, Dosing Weight 82.273, kg, PRN Pain, Start date: 11/26/13 18:04:00 Inactive 11/26/2013 [facility] Metoprolol 1 mg, Route: IVP, Q5Min, Dosing Weight 82.273, kg, PRN Other -See Comment, Start date: 11/26/13 17:34:00, Duration: 5 doses or times, Stop date: Limited # of times Inactive 11/26/2013 [facility] Acetaminophen 1,000 mg, Route: IVPB, Drug form: INJ, ONCE, Dosing Weight 82.273, kg, PRN Pain Score 1-3, Start date: 11/26/13 17:34:00, Duration: 1 doses or times, Stop date: Limited # of times Inactive 11/26/2013 [facility] Hydromorphone 0.5 mg, Route: IVP, Q5Min, Dosing Weight 82.273, kg, PRN Pain Score 7-10, Start date: 11/26/13 17:34:00, Duration: 4 doses or times, Stop date: Limited # of times Inactive 11/26/2013 [facility] Ondansetron 4 mg, Route: IVP, ONCE, Dosing Weight 82.273, kg, PRN Nausea & Vomiting, Start date: 11/26/13 17:34:00 Inactive 11/26/2013 [facility] Diphenhydramine 12.5 mg, Route: IVP, Drug form: INJ, Q6H, Dosing Weight 82.273, kg, PRN Itching, Start date: 11/26/13 17:34:00, Duration: 30 day, Stop date: 12/26/13 17:33:00 Inactive 11/26/2013 [facility] Ondansetron 4 MG Oral Tablet [Zofran] 4 mg=1 tab, PO, BID, # 10 tab, 0 Refill(s) Active 11/26/2013 [facility] Acetaminophen 325 MG / Hydrocodone Bitartrate 10 MG Oral Tablet [Bradley 10/325] 1-2 tab, PO, Q4-6H, Pain, # 30 tab, 0 Refill(s) Active 11/26/2013 [facility] Cephalexin 500 MG Oral Capsule [Keflex] 500 mg=1 cap, PO, TID, # 30 cap, 0 Refill(s) Active 11/26/2013 [facility] Senna-gen 8.6 mg oral tablet 17.2 mg=2 tab, PO, Bedtime, for constipation, # 100 tab, 0 Refill(s) Active 11/26/2013 [facility] ceFAZolin 2 gm, 50 mL, Route: IVPB, Drug form: INJ, PRE OP, Start date: 11/26/13 2:00:00, Duration: 1 day, Stop date: 11/27/13 1:59:00 Inactive 11/26/2013 [facility] gabapentin 300 MG Oral Capsule 300 mg, 1 cap, Route: PO, Drug form: CAP, Bedtime, Dosing Weight 79.545, kg, Start date: 09/04/13 21:00:00, Duration: 30 day, Stop date: 10/03/13 21:00:00Notes: (Same as: Neurontin) Inactive 09/05/2013 [facility] Dicyclomine 20 mg, 1 tab, Route: PO, Drug form: TAB, TID, Dosing Weight 79.545, kg, Start date: 09/04/13 9:00:00, Duration: 30 day, Stop date: 10/03/13 17:00:00Notes: (Same as: Ramy) Inactive 09/04/2013 [facility] benazepril 10 mg, Route: PO, Drug form: TAB, BID, Dosing Weight 79.545, kg, Start date: 09/04/13 9:00:00, Duration: 30 day, Stop date: 10/03/13 17:00:00 No Longer Active 09/04/2013 [facility] Amlodipine 5 mg, 1 tab, Route: PO, Drug form: TAB, Daily, Dosing Weight 79.545, kg, Start date: 09/04/13 9:00:00, Duration: 30 day, Stop date: 10/03/13 9:00:00Notes: (Same as: Norvasc) Inactive 09/04/2013 [facility] Prinivil 20 mg, 1 tab, Route: PO, Drug form: TAB, Daily, Start date: 09/04/13 9:00:00, Duration: 30 day, Stop date: 10/03/13 9:00:00Notes: (Same as: Prinivil, Zestril) Inactive 09/04/2013 [facility] pantoprazole 40 mg, 1 tab, Route: PO, Drug form: ECTAB, Daily, Dosing Weight 79.545, kg, Start date: 09/04/13 9:00:00, Duration: 30 day, Stop date: 10/03/13 9:00:00Notes: Tablet should not be chewed or crushed. ( Same as: Protonix) Inactive 09/04/2013 [facility] Metoclopramide 10 MG Oral Tablet 10 mg, 1 tab, Route: PO, Drug form: TAB, TID, Dosing Weight 79.545, kg, Start date: 09/04/13 9:00:00, Duration: 30 day, Stop date: 10/03/13 17:00:00Notes: (Same as: Reglan) Take 30 min before meals Inactive 09/04/2013 [facility] Hydromorphone 4 mg, 2 tab, Route: PO, Drug form: TAB, Q4H, Dosing Weight 79.545, kg, PRN Pain Score 7-10, Start date: 09/03/13 22:35:00, Duration: 30 day, Stop date: 10/03/13 22:34:00Notes: (Same as: Dilaudid) No Longer Active 09/04/2013 [facility] tramadol hydrochloride 50 MG Oral Tablet 50 mg, 1 tab, Route: PO, Drug form: TAB, Q4H, Dosing Weight 79.545, kg, PRN Pain Score 4-6, Start date: 09/03/13 22:35:00, Duration: 30 day, Stop date: 10/03/13 22:34:00Notes: Not to exceed 400mg/day. (Same As: Ultram) No Longer Active 09/04/2013 [facility] tramadol hydrochloride 50 MG Oral Tablet 50 mg=1 tab, PO, Q4H, Pain, # 60 tab, 0 Refill(s) Active 09/04/2013 [facility] gabapentin 300 MG Oral Capsule 300 mg=1 cap, Bedtime, 0 Refill(s) Active 09/04/2013 [facility] hydromorphone 4 mg oral tablet 4 mg=1 tab, PO, Q4H, Pain, 0 Refill(s) Active 09/04/2013 [facility] Calcium Chloride 0.0014 MEQ/ML / Potassium Chloride 0.004 MEQ/ML / Sodium Chloride 0.103 MEQ/ML / Sodium Lactate 0.028 MEQ/ML Injectable Solution 1,000 mL, Rate: 25 ml/hr, Infuse over: 40 hr, Route: IV, Dosing Weight 79.545 kg, Total Volume: 1,000, Start date: 09/03/13 10:57:00, Duration: 30 day, Stop date: 10/03/13 10:56:00 Inactive 09/03/2013 [facility] Morphine 30 mg, 1 tab, Route: PO, Drug form: ERTAB, BID, Dosing Weight 79.545, kg, PRN Pain, Start date: 09/03/13 9:19:00, Duration: 2 day, Stop date: 09/05/13 9:18:00Notes: Do not crush (Same as:Oramorph SR, MS Contin) No Longer Active 09/03/2013 [facility] dicyclomine 20 mg oral tablet 20 mg=1 tab, PO, RTID, # 28 tab, 0 Refill(s) Active 08/29/2013 [facility] morphine 30 mg oral tablet 30 mg=1 tab, PO, BID, Pain, 0 Refill(s) Active 08/29/2013 [facility] pantoprazole 40 mg oral enteric coated tablet 40 mg=1 tab, PO, Daily, # 30 tab, 0 Refill(s) Active 08/29/2013 [facility] benazepril 10 mg oral tablet 10 mg=1 tab, PO, BID, # 30 tab, 0 Refill(s) Active 08/29/2013 [facility] Allergies, Adverse Reactions, Alerts Substance Category Reaction Severity Reaction type Status Date Reported Comments Source iodine<sup>1</sup> Assertion Drug allergy Active 10/09/2013 Data migrated from [facility] on 11/10/14. Originally documented as IODINE. [facility] Adhesive<sup>2</sup> Assertion Drug allergy Active 12/10/2013 Data migrated from [facility] on 05/20/15. Originally documented as ADHESIVE PAPER. [facility] contrast media (iodine-based) Assertion Drug allergy Active [facility] Immunizations No Data Provided for This Section Results Order Name Results Value Reference Range Date Interpretation Comments Source URINE AND STOOL UA Urobilinogen <=1.0 mg/dL 0.1 - 1.0 11/26/2013 [facility] URINE AND STOOL UA RBC 7 0 - 2 11/26/2013 [facility] URINE AND STOOL UA Bacteria Occasional /HPF None Seen /HPF 11/26/2013 [facility] URINE AND STOOL UA WBC 56 0 - 5 11/26/2013 [facility] URINE AND STOOL UA Mucus Few /LPF None Seen /LPF 11/26/2013 [facility] URINE AND STOOL Micro? Performed *NA* (11/26/13 1:30 PM) 11/26/2013 [facility] URINE AND STOOL UA Color Yellow *NA* (11/26/13 1:30 PM) Yellow 11/26/2013 [facility] URINE AND STOOL UA Turbidity Slight *ABN* (11/26/13 1:30 PM) Clear 11/26/2013 [facility] URINE AND STOOL UA Spec Grav 1.011 <=1.030 11/26/2013 [facility] URINE AND STOOL UA Glucose Negative mg/dL Negative mg/dL 11/26/2013 [facility] URINE AND STOOL UA Ketones Negative mg/dL Negative mg/dL 11/26/2013 [facility] URINE AND STOOL UA Bili Negative *NA* (11/26/13 1:30 PM) Negative 11/26/2013 [facility] URINE AND STOOL UA Blood Small *ABN* (11/26/13 1:30 PM) Negative 11/26/2013 [facility] URINE AND STOOL UA Leuk Est Large *ABN* (11/26/13 1:30 PM) Negative 11/26/2013 [facility] URINE AND STOOL UA Sq Epi Many /LPF Few /LPF 11/26/2013 [facility] URINE AND STOOL UA Nitrite Negative (11/26/13 1:30 PM) Negative 11/26/2013 [facility] URINE AND STOOL UA pH 6.5 5.0 - 8.0 11/26/2013 [facility] URINE AND STOOL UA Protein Negative mg/dL Negative mg/dL 11/26/2013 [facility] BLOOD BANK RESULTS Antibody Scrn Negative (11/26/13 1:20 PM) 11/26/2013 [facility] BLOOD BANK RESULTS ABO/Rh O POS 11/26/2013 [facility] HEMATOLOGY MCH 30.5 27.0 - 31.0 11/26/2013 [facility] HEMATOLOGY Platelet 262 133 - 450 11/26/2013 [facility] HEMATOLOGY MPV 7.8 7.4 - 10.4 11/26/2013 [facility] HEMATOLOGY RDW 14.2 11.5 - 14.5 11/26/2013 [facility] HEMATOLOGY MCV 91.7 80.0 - 98.0 11/26/2013 [facility] HEMATOLOGY MCHC 33.2 32.0 - 36.0 11/26/2013 [facility] HEMATOLOGY Hct 42.2 36.0 - 48.0 11/26/2013 [facility] HEMATOLOGY Hgb 14.0 12.0 - 16.0 11/26/2013 [facility] HEMATOLOGY RBC 4.61 4.20 - 5.40 11/26/2013 [facility] HEMATOLOGY WBC 9.5 3.7 - 10.4 11/26/2013 [facility] HEMATOLOGY Basophils # 0.1 0.0 - 0.2 11/26/2013 [facility] HEMATOLOGY Eosinophils # 0.4 0.0 - 0.5 11/26/2013 [facility] HEMATOLOGY Segs-Bands # 5.7 1.5 - 8.1 11/26/2013 [facility] HEMATOLOGY Monocytes # 0.4 0.0 - 0.8 11/26/2013 [facility] HEMATOLOGY Lymphocytes # 2.9 1.0 - 5.5 11/26/2013 [facility] HEMATOLOGY Basophils 1.2 0.0 - 1.0 11/26/2013 [facility] HEMATOLOGY Segs 59.7 45.0 - 75.0 11/26/2013 [facility] HEMATOLOGY Eosinophils 3.8 0.0 - 4.0 11/26/2013 [facility] HEMATOLOGY Monocytes 4.5 2.0 - 12.0 11/26/2013 [facility] HEMATOLOGY Lymphocytes 30.8 20.0 - 40.0 11/26/2013 [facility] HEMATOLOGY INR 0.97 0.85 - 1.17 11/26/2013 <sup>3</sup>Interpretive Data: RECOMMENDED RANGES FOR PROTIME INR:
2.0-3.0 for most medical and surgical thromboembolic states.
2.5-3.5 for artificial heart valves and recurrent embolism.

INR SHOULD BE USED ONLY FOR PATIENTS ON STABLE ANTICOAGULANT THERAPY. [facility] HEMATOLOGY PTT 38.5 22.9 - 35.8 11/26/2013 <sup>5</sup>Interpretive Data: Heparin Therapeutic Range: 57 - 92 Seconds [facility] HEMATOLOGY PT 12.9 12.0 - 14.7 11/26/2013 [facility] ELECTROLYTES AGAP 11.4 10.0 - 20.0 11/06/2013 [facility] ELECTROLYTES Calcium Lvl 9.3 8.5 - 10.5 11/06/2013 [facility] ELECTROLYTES CO2 28 24 - 32 11/06/2013 [facility] ELECTROLYTES Chloride Lvl 105 95 - 109 11/06/2013 [facility] ELECTROLYTES BUN 10 7 - 22 11/06/2013 [facility] ELECTROLYTES Glucose Lvl 83 70 - 99 11/06/2013 <sup>2</sup>Interpretive Data: Adult reference range values reflect the clinical guidelines
of the [place] [employer]. [facility] ELECTROLYTES Potassium Lvl 4.4 3.5 - 5.1 11/06/2013 [facility] ELECTROLYTES Sodium Lvl 140 135 - 145 11/06/2013 [facility] ELECTROLYTES Creatinine Lvl 0.9 0.5 - 1.4 11/06/2013 [facility] ELECTROLYTES eGFR 69 11/06/2013 <sup>1</sup>Result Comment: The eGFR is calculated using the CKD-EPI formula. In most young, healthy individuals the eGFR will be >90 mL/min/1.73m2. The eGFR declines with age. An eGFR of 60-89 may be normal in some populations, particularly the elderly, for whom the CKD-EPI formula has not been extensively validated. Use of the eGFR is not recommended in the following populations:& lt;br/>
Individuals with unstable creatinine concentrations, including patients [...] should be multiplied by the estimated BMI. [facility] HEMATOLOGY Eosinophils 4.8 0.0 - 4.0 11/06/2013 [facility] HEMATOLOGY Basophils 0.7 0.0 - 1.0 11/06/2013 [facility] HEMATOLOGY Lymphocytes 33.6 20.0 - 40.0 11/06/2013 [facility] HEMATOLOGY Monocytes 5.3 2.0 - 12.0 11/06/2013 [facility] HEMATOLOGY Segs 55.6 45.0 - 75.0 11/06/2013 [facility] HEMATOLOGY Segs-Bands # 6.5 1.5 - 8.1 11/06/2013 [facility] HEMATOLOGY Eosinophils # 0.6 0.0 - 0.5 11/06/2013 [facility] HEMATOLOGY Monocytes # 0.6 0.0 - 0.8 11/06/2013 [facility] HEMATOLOGY Lymphocytes # 3.9 1.0 - 5.5 11/06/2013 [facility] HEMATOLOGY Basophils # 0.1 0.0 - 0.2 11/06/2013 [facility] HEMATOLOGY Platelet 291 133 - 450 11/06/2013 [facility] HEMATOLOGY MPV 8.2 7.4 - 10.4 11/06/2013 [facility] HEMATOLOGY RDW 14.3 11.5 - 14.5 11/06/2013 [facility] HEMATOLOGY MCHC 32.8 32.0 - 36.0 11/06/2013 [facility] HEMATOLOGY Hct 43.7 36.0 - 48.0 11/06/2013 [facility] HEMATOLOGY MCH 30.2 27.0 - 31.0 11/06/2013 [facility] HEMATOLOGY MCV 92.3 80.0 - 98.0 11/06/2013 [facility] HEMATOLOGY RBC 4.73 4.20 - 5.40 11/06/2013 [facility] HEMATOLOGY Hgb 14.3 12.0 - 16.0 11/06/2013 [facility] HEMATOLOGY WBC 11.7 3.7 - 10.4 11/06/2013 [facility] HEMATOLOGY PTT 35.2 22.9 - 35.8 11/06/2013 <sup>6</sup>Interpretive Data: Heparin Therapeutic Range: 57 - 92 Seconds [facility] HEMATOLOGY PT 12.1 12.0 - 14.7 11/06/2013 [facility] HEMATOLOGY INR 0.90 0.85 - 1.17 11/06/2013 <sup>4</sup>Interpretive Data: RECOMMENDED RANGES FOR PROTIME INR:
2.0-3.0 for most medical and surgical thromboembolic states.
2.5-3.5 for artificial heart valves and recurrent embolism.

INR SHOULD BE USED ONLY FOR PATIENTS ON STABLE ANTICOAGULANT THERAPY. [facility] Pathology Reports No Data Provided for This Section Diagnostic Reports Report Value Date Source Spine cervical wo contrast MRI Clinical Indication: [...] further assess. RECOMMENDATION: Consider neurosurgical consultation. SL: KEYSHA 09/13/2017 [facility] Abdomen AP DX PROCEDURE: Supine abdomen radiographs, [...] 1. No acute abdominal abnormality identified. SL: [id number] 09/13/2017 [facility] Brain wo contrast MRI EXAM: MRI BRAIN [...] acute infarct or intracranial hemorrhage detected. SL: [id number] 08/16/2017 [facility] Carotid artery Doppler bilat US Patient Name: JOSE RIGGINS : 1950; Age: 66 years Female MR: [id number] Study: Carotid artery Doppler bilat US 08/16/2017 [...] occlusion High, low, or Variable undetectable SL: [id number] 08/16/2017 [facility] Consultation Notes No Data Provided for This Section Discharge Summaries No Data Provided for This Section History and Physicals No Data Provided for This Section Vital Signs Vital Sign Value Date Comments Source Diastolic (mm Hg) 73 11/26/2013 [facility] Systolic (mm Hg) 136 11/26/2013 [facility] Respitory Rate 20 11/26/2013 [facility] Heart Rate 99 11/26/2013 [facility] Systolic (mm Hg) 140 11/26/2013 [facility] Diastolic (mm Hg) 59 11/26/2013 [facility] Respitory Rate 12 11/26/2013 [facility] Diastolic (mm Hg) 82 11/26/2013 [facility] Systolic (mm Hg) 141 11/26/2013 [facility] Respitory Rate 13 11/26/2013 [facility] Heart Rate 83 11/26/2013 [facility] BMI Calculated 34.27 11/07/2013 [facility] Height 154.94 cm 11/07/2013 [facility] Weight 82.273 11/07/2013 [facility] Respitory Rate 19 09/04/2013 [facility] Diastolic (mm Hg) 60 09/04/2013 [facility] Systolic (mm Hg) 104 09/04/2013 [facility] Temperature Oral (F) 98.1 F 09/04/2013 [facility] Heart Rate 73 09/04/2013 [facility] Diastolic (mm Hg) 70 09/04/2013 [facility] Systolic (mm Hg) 105 09/04/2013 [facility] Respitory Rate 18 09/04/2013 [facility] Heart Rate 67 09/04/2013 [facility] Temperature Oral (F) 98.1 F 09/04/2013 [facility] Heart Rate 76 09/04/2013 [facility] Respitory Rate 17 09/04/2013 [facility] Systolic (mm Hg) 119 09/04/2013 [facility] Diastolic (mm Hg) 64 09/04/2013 [facility] Temperature Oral (F) 99.1 F 09/04/2013 [facility] Weight 79.545 08/29/2013 [facility] BMI Calculated 33.13 08/29/2013 [facility] Height 154.94 cm 08/29/2013 [facility] Encounters Location Location Details Encounter Type Encounter Number Reason For Visit Attending Provider ADM Date DC Date Status Source [facility] OBS Observation Patient [id number] Maritr Tobias 09/03/2013 09/04/2013 [facility] OBS Day Surgery [id number] Joao Rangel Jr 11/26/2013 11/27/2013 [facility] [id number] Nahed Palvadi 08/16/2017 08/17/2017 [facility] [id number] Nahed Palvadi 09/13/2017 09/14/2017 [facility] Procedures Procedure Code Date Perfomer Comments Source Cholecystectomy [id number] [facility] Esophagogastroduodenoscopy [id number] [facility] Hysterectomy [id number] [facility] Operation [id number] [facility] Suspension of bladder [id number] [facility] Assessment and Plan Assessment and Plan Date Source Extracted from:Title: Discharge Summary - Intrathecal pump trial Author: Martir Tobias MD Date: 09/04/13 Discharge Summary Name: Jose Riggins Record Number: [id number] Admission Date: 09/03/2013 Discharge Date: 09/04/2013 Diagnoses: chronic pain syndrome, lumbosaral neuritis/radiculitis Procedures: intrathecal morphine trial Chief Complaint: back pain Hospital course: patient tolerated procedure well without apparent complications. Patient was able to void within 6 hours of procedure. She experienced greater than 60% pain relief, was able to move about better, and did not have to use her medication until more than 6hours after the procedure. She was discharged home in good condition. Discharge condition: good Discharge therapy: Medications resume home medication Diet resume home diet Activity as tolerated Follow up with Dr. Nichole Finn at [facility] as scheduled or within 2 weeks. Extracted from:Title: Intrathecal morphine trial Author: Martir Tobias MD Date: 09/03/13 OP note - intrathecal pump trial The procedure was performed at at [facility] [place] H&P was reviewed with patient prior to the procedure and patient denies significant changes. PATIENT NAME: Jose Riggins DATE OF : 50 REFERRAL SOURCE: [facility] DATE OF PROCEDURE: 09/03/13 SURGEON: Martir Tobias M.D. PRE-PROCEDURE DIAGNOSIS: LUMBOSACRAL SPONDYLOSIS OTHER CHRONIC POSTOPERATIVE PAIN UNS NEURALGIA NEURITIS/RADICULITIS POST-PROCEDURE DIAGNOSIS: LUMBOSACRAL SPONDYLOSIS OTHER CHRONIC POSTOPERATIVE PAIN UNS NEURALGIA NEURITIS/RADICULITIS PROCEDURES: Intrathecal pump trial - single injection Fluoroscopic guidance for the above procedure [id number] ANESTHESIA: total intravenous anesthetic (TIVA) ESTIMATED BLOOD LOSS: Minimal IV FLUIDS: Per anesthetic/nursing record COMPLICATIONS: None PROCEDURE IN DETAIL: The patient was identified in the procedure room. Risks, benefits, and alternatives were discussed, all questions were answered, and the patient desired to proceed. Consent was noted in the chart and a time out was performed. Then the patient was made comfortable in the prone position on the procedure table. Pressure points were checked and padded awake. Vital signs were stable.Anesthesia was provided as indicated above. An antiseptic solution was used over the area followed by sterile draping. Fluoroscopy was used to optimize the approach over the lumbar spine. A skin wheal was raised with lidocaine 1% using a 25 gauge 1.5 inch needle and carried deep into the subcutaneous tissue. Then a 22 gauge 3.5 inch spinal needle was advanced into the subarachnoid space at the L2-L3 level with fluoroscopic guidance. Aspiration was positive for a clear fluid yielding 1 mL total volume.AP and lateral fluoroscopic image passenger relations representative of intrathecal placement. Then 100mcg of Duramorph in 1mL 0.9% preservative free saline was injected. The needles were then removed and the tips were noted to be intact. Pressure was applied to the puncture site to prevent ecchymosis and oozing. The site was cleaned and a band-aid was placed over the injection site. The patient was transferred to a stretcher and taken to the recovery area in stable condition. The patient tolerated the procedure well, suffered no apparent adverse events. The patient was then admitted for 23 hour observation to evaluate pain improvement and monitor for potential side effects from the procedure. Extracted from:Title: Intrathecal pump trial Author: Martir Tobias MD Date: 09/03/13 Name: Jose Riggins Visit date: 09/03/2013 Provider: Tri Ritter : 1950 Ref. provider: Armond Vera Age: 62 year Address: [address] [place] [address] [address] [facility] Chief Complaint back and generalized pain History of Present Illness Recent pain history: The patient [place] [facility] . The patient denies significant changes or side effects from treatment since last visit. She verbalized understanding of trial process, risks and benefits. She desires to procced. Location: back Quality: stabbing, sharp, and feels like pins and needles. Accompanying symptoms: spasms Sleep disturbance: wakes up in the middle of the night due to pain Relieving factors: medications, and injections. Aggravating factors: standing twisting, and over activity. Previous treatments: medications, and injections. Visual Analog Scale for pain: Current: 6/10 At best: 2/10 At worst: 10/10 Side effects from medications: denies Bowel or bladder dysfunction: denies Medications Allergies: IV DYE(increase blood pressure, difficulty rohit) Current Medications: Rx: AMLODIPINE Rx: BENAZEPRIL Rx: LEVOTHYROXINE Rx: VOLTAREN 1% Apply Q8H PRN Rx: DILAUDID 4mg 1 Tablet every 4 hours PRN Rx: GABAPENTIN 300 mg 1 Capsule at bed-time Rx: MORPHINE SULFATE ER 30mg 1 Tablet every 12 hours Rx: OMNI COMPOUND CAPSULE MS-3 1 Capsule twice each day Rx: TRAMADOL HCL 50 mg 1 Tablet every 4 hours PRN Brief History of Pain The patient states having abdominal pain around her incision sites after a laproscopic cholecystectomy performed in 12/2009. She reports she had symptoms from 06/2009 and a diagnosis was not made earlier due to negative studies. She also reports a neck mass which was treated with antibiotics and steroids that was due to the gallbladder before her cholecystectomy. She continues to have sudden sharp abdominal pains, but complains of chronic low back pain and sudden sharp mid back pains which are debilitating. She also has associated migraines. Medical History chronic back pain with spondolytic changes in the lower lumbar region on MRI diverticulitis diagnosed in 2008 gallbladder problems from 06/2009 which reported manifested as a neck mass treated by antibiotics and steroids per the patient before being diagnosed during an exploratory laparoscopy in 12/2009 hiatal hernia diagnosed in 2008 hypertension (HTN) hypothyroidism meralgia paresthetica right due to traction during bone harvest, see note from Dr. 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 Finn trigger point injections (TPI) across the mid thoracic and lumbar regions and lateral femoral cutaneous blocks, multiple from 06/2011 to present with moderate relief, by Dr. Finn lateral femoral cutaneous nerve block right side multiple since 08/2011 with around 80% relief that gradually fades over 3 weeks. On 01/18/2012, and on 03/14/[address] Finn Ultrasound guided right intercostal nerve block at T7 and T8 performed on 05/07/2013 Other Physicians PCP - Senthil Vera M.D. Family history Patient denies significant contributing history. Social history Tobacco Use: smokes less than 1/2 a pack of cigarettes a day on and off since 1977. Alcohol Use: rarely. Illicit Drugs Use: denies. 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 Review of Systems Constitutional: No fevers, chills, or unexplained weight loss Eyes: No visual changes or eye pain Ears: No hearing loss , otorrhea or ear pain Nose/Mouth/Throat: No nasal congestion, rhinorrhea, oral lesions, postnasal drip or sore throat Cardiovascular: No chest pain or palpitations. Respiratory: No cough, shortness of breath or wheezing Gastrointestinal: No diarrhea, constipation, blood in stools, abdominal pain, vomiting or heartburn Genitourinary: No urinary frequency, hematuria, incontinence, or dysuria Skin: No rash or bothersome skin lesions Neurological: No headaches, paresthesias, confusion, dysarthria or gait instability Psychiatric: No anxiety or depression Hematologic/Lymphatic: No easy bruising, easy bleeding or swollen glands Allergic/Immunologic: No itching, sneezing , watery eyes, clear rhinorrhea or recurrent infections Physical Exam Vital Signs: Please refer to recorded vital signs General: Well appearing, well nourished in no distress. Skin: no rash or prominent lesions Head: normocephalic, atraumatic Neck: Supple without lymphadenopathy. Back: . Inspection: Palpation:Trigger points along right paraspinal muscular on lumbar spine. Midline spinal tenderness: Yes lumbar Paralumbar tenderness: bilateral Parathoracic tenderness: bilateral Buttocks tenderness: bilateral Range of Motion: Extension: moderately decreased Straight leg raise: positive Assessment and Diagnosis Jose Golden a 62 year female here for evaluation and treatment of: OTHER CHRONIC POSTOPERATIVE PAIN UNS NEURALGIA NEURITIS/RADICULITIS Recommendations Procedure: Plan on intrathecal pump trial without use of IV contrast due to Iodine contrast allergy Patient education: Discussed the risks, benefits, and alternatives regarding the procedure, and answered all questions. Follow-up: in [address] Finn at [facility] 09/04/2013 [facility] Plan of Care No Data Provided for This Section Social History Social History Date Source Social History TypeResponse Smoking Status Current every day smoker; Type: Cigarettes; Lives with someone who smokes; Cigarette Smoking Last 365 Days No; Reg Smoking Cessation Counseling No entered on: 08/29/13 08/29/2013 [facility] Social History TypeResponse Smoking Status Current every day smoker, Type: Cigarettes, Exposure to Tobacco Smoke Lives with someone who smokes, Cigarette Smoking Last 365 Days No, Reg Smoking Cessation Counseling No 08/29/2013 [facility] Family History No Data Provided for This Section Advance Directives No Data Provided for This Section Functional Status No Data Provided for This Section
[2018-10-02] MEDS ORDERED: TETANUS/DIPHTHERIA TOX ADULT 0.5 ML SYR ONE (10:01)
--- NOTE | 2018-10-02 10:05 | Diagnostic Imaging Report ---
Exam: Right Hand Series. History: Cat-bite, trauma Comparison: None Findings: 3 views of the right hand demonstrate no acute fracture or dislocation. The soft tissues appear unremarkable. No substantial degenerative changes. Impression: No acute osseous injury. Signed by: Curt Mcclain MD on 10/02/2018 10:01 AM
[2018-10-02 10:06] VITALS: BP 125/62
[2018-10-02] MEDS ORDERED: TETANUS/DIPHTHERIA TOX ADULT 0.5 ML SYR IM NR (12:30)
== END 2018-10-02 10:16 | disposition home or self-care (01) ==
LOC: FSED 09:25
DX: S61.451A Open bite of right hand, initial encounter (principal); W55.01XA Bitten by cat, initial encounter; Y92.009 Unspecified place in unspecified non-institutional (private) residence as the place of occurrence of the external cause; Z23 Encounter for immunization; Z87.891 Personal history of nicotine dependence; K21.9 Gastro-esophageal reflux disease without esophagitis; M79.7 Fibromyalgia; J44.9 Chronic obstructive pulmonary disease, unspecified; Z79.82 Long term (current) use of aspirin
CPT/HCPCS: 90714; 99283

== ENCOUNTER 2018-10-28 19:21 | Emergency (ER) | payer MEDICARE, OTHER ==
[~2018-10-28] VITALS: Ht 152.4 cm; Wt 80.3 kg
--- OUTSIDE RECORDS SUMMARY | 2018-10-28 19:26 | XMS REPORT | Continuity of Care Document ---
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 [facility] Low back pain3 Active 10/11/2013 Problem 09/16/2017 Data migrated from [email or web address] on 11/11/14. [facility] Lumbar radiculopathy4 Active 10/11/2013 Problem 09/16/2017 Data migrated from [email or web address] on 11/11/14. [facility] CHRONIC PAIN SYNDROME Active 10/09/2013 [facility] 338.4 Active 08/26/2013 [facility] INTRATHECAL PUMP TRIAL, OBSERVATIONAL FO Active 08/26/2013 [facility] Back pain Active Problem 09/16/2017 [facility] Chronic pain1 Active Problem 09/16/2017 chronic pain syndrome [facility] Hypertension Active Problem 09/16/2017 [facility] Hypothyroidism Active Problem 09/16/2017 [facility] [place] Pain Active Problem 09/16/2017 [facility] Peripheral neuropathy Active Problem 09/16/2017 [facility] Reflux Active Problem 09/16/2017 [facility] CHRONIC PAIN SYNDROME Active [facility] CERVICAL DISC DISORDER, UNSP, UNSPECIFIE Active [facility] Medications Medication Details Route Status Patient Instructions Ordering Provider Order Date Source Oxycodone Hydrochloride 5 MG Oral Tablet 10 mg, Route: PO, Drug form: TAB, ONCE, Dosing Weight 82.273, kg, PRN Pain Score 7-10, Start date: 11/26/13 18:05:00 Inactive 11/26/2013 [facility] Dilaudid 1 mg, Route: IV, ONCE, Dosing Weight 82.273, kg, PRN Pain, Start date: 11/26/13 18:04:00 Inactive 11/26/2013 [facility] Metoprolol 1 mg, Route: IVP, Q5Min, Dosing Weight 82.273, kg, PRN Other -See Comment, Start date: 11/26/13 17:34:00, Duration: 5 doses or times, Stop date: Limited # of times Inactive 11/26/2013 [facility] Acetaminophen 1,000 mg, Route: IVPB, Drug form: INJ, ONCE, Dosing Weight 82.273, kg, PRN Pain Score 1-3, Start date: 11/26/13 17:34:00, Duration: 1 doses or times, Stop date: Limited # of times Inactive 11/26/2013 [facility] Hydromorphone 0.5 mg, Route: IVP, Q5Min, Dosing Weight 82.273, kg, PRN Pain Score 7-10, Start date: 11/26/13 17:34:00, Duration: 4 doses or times, Stop date: Limited # of times Inactive 11/26/2013 [facility] Ondansetron 4 mg, Route: IVP, ONCE, Dosing Weight 82.273, kg, PRN Nausea & Vomiting, Start date: 11/26/13 17:34:00 Inactive 11/26/2013 [facility] Diphenhydramine 12.5 mg, Route: IVP, Drug form: INJ, Q6H, Dosing Weight 82.273, kg, PRN Itching, Start date: 11/26/13 17:34:00, Duration: 30 day, Stop date: 12/26/13 17:33:00 Inactive 11/26/2013 [facility] Ondansetron 4 MG Oral Tablet [Zofran] 4 mg=1 tab, PO, BID, # 10 tab, 0 Refill(s) Active 11/26/2013 [facility] Acetaminophen 325 MG / Hydrocodone Bitartrate 10 MG Oral Tablet [[place] 10/325] 1-2 tab, PO, Q4-6H, Pain, # 30 tab, 0 Refill(s) Active 11/26/2013 [facility] Cephalexin 500 MG Oral Capsule [Keflex] 500 mg=1 cap, PO, TID, # 30 cap, 0 Refill(s) Active 11/26/2013 [facility] Senna-gen 8.6 mg oral tablet 17.2 mg=2 tab, PO, Bedtime, for constipation, # 100 tab, 0 Refill(s) Active 11/26/2013 [facility] ceFAZolin 2 gm, 50 mL, Route: IVPB, Drug form: INJ, PRE OP, Start date: 11/26/13 2:00:00, Duration: 1 day, Stop date: 11/27/13 1:59:00 Inactive 11/26/2013 [facility] gabapentin 300 MG Oral Capsule 300 mg, 1 cap, Route: PO, Drug form: CAP, Bedtime, Dosing Weight 79.545, kg, Start date: 09/04/13 21:00:00, Duration: 30 day, Stop date: 10/03/13 21:00:00Notes: (Same as: Neurontin) Inactive 09/05/2013 [facility] Dicyclomine 20 mg, 1 tab, Route: PO, Drug form: TAB, TID, Dosing Weight 79.545, kg, Start date: 09/04/13 9:00:00, Duration: 30 day, Stop date: 10/03/13 17:00:00Notes: (Same as: Ramy) Inactive 09/04/2013 [facility] benazepril 10 mg, Route: PO, Drug form: TAB, BID, Dosing Weight 79.545, kg, Start date: 09/04/13 9:00:00, Duration: 30 day, Stop date: 10/03/13 17:00:00 No Longer Active 09/04/2013 [facility] Amlodipine 5 mg, 1 tab, Route: PO, Drug form: TAB, Daily, Dosing Weight 79.545, kg, Start date: 09/04/13 9:00:00, Duration: 30 day, Stop date: 10/03/13 9:00:00Notes: (Same as: Norvasc) Inactive 09/04/2013 [facility] Prinivil 20 mg, 1 tab, Route: PO, Drug form: TAB, Daily, Start date: 09/04/13 9:00:00, Duration: 30 day, Stop date: 10/03/13 9:00:00Notes: (Same as: Prinivil, Zestril) Inactive 09/04/2013 [facility] pantoprazole 40 mg, 1 tab, Route: PO, Drug form: ECTAB, Daily, Dosing Weight 79.545, kg, Start date: 09/04/13 9:00:00, Duration: 30 day, Stop date: 10/03/13 9:00:00Notes: Tablet should not be chewed or crushed. ( Same as: Protonix) Inactive 09/04/2013 [facility] Metoclopramide 10 MG Oral Tablet 10 mg, 1 tab, Route: PO, Drug form: TAB, TID, Dosing Weight 79.545, kg, Start date: 09/04/13 9:00:00, Duration: 30 day, Stop date: 10/03/13 17:00:00Notes: (Same as: Reglan) Take 30 min before meals Inactive 09/04/2013 [facility] Hydromorphone 4 mg, 2 tab, Route: PO, Drug form: TAB, Q4H, Dosing Weight 79.545, kg, PRN Pain Score 7-10, Start date: 09/03/13 22:35:00, Duration: 30 day, Stop date: 10/03/13 22:34:00Notes: (Same as: Dilaudid) No Longer Active 09/04/2013 [facility] tramadol hydrochloride 50 MG Oral Tablet 50 mg, 1 tab, Route: PO, Drug form: TAB, Q4H, Dosing Weight 79.545, kg, PRN Pain Score 4-6, Start date: 09/03/13 22:35:00, Duration: 30 day, Stop date: 10/03/13 22:34:00Notes: Not to exceed 400mg/day. (Same As: Ultram) No Longer Active 09/04/2013 [facility] tramadol hydrochloride 50 MG Oral Tablet 50 mg=1 tab, PO, Q4H, Pain, # 60 tab, 0 Refill(s) Active 09/04/2013 [facility] gabapentin 300 MG Oral Capsule 300 mg=1 cap, Bedtime, 0 Refill(s) Active 09/04/2013 [facility] hydromorphone 4 mg oral tablet 4 mg=1 tab, PO, Q4H, Pain, 0 Refill(s) Active 09/04/2013 [facility] Calcium Chloride 0.0014 MEQ/ML / Potassium Chloride 0.004 MEQ/ML / Sodium Chloride 0.103 MEQ/ML / Sodium Lactate 0.028 MEQ/ML Injectable Solution 1,000 mL, Rate: 25 ml/hr, Infuse over: 40 hr, Route: IV, Dosing Weight 79.545 kg, Total Volume: 1,000, Start date: 09/03/13 10:57:00, Duration: 30 day, Stop date: 10/03/13 10:56:00 Inactive 09/03/2013 [facility] Morphine 30 mg, 1 tab, Route: PO, Drug form: ERTAB, BID, Dosing Weight 79.545, kg, PRN Pain, Start date: 09/03/13 9:19:00, Duration: 2 day, Stop date: 09/05/13 9:18:00Notes: Do not crush (Same as:Oramorph SR, MS Contin) No Longer Active 09/03/2013 [facility] dicyclomine 20 mg oral tablet 20 mg=1 tab, PO, RTID, # 28 tab, 0 Refill(s) Active 08/29/2013 [facility] morphine 30 mg oral tablet 30 mg=1 tab, PO, BID, Pain, 0 Refill(s) Active 08/29/2013 [facility] pantoprazole 40 mg oral enteric coated tablet 40 mg=1 tab, PO, Daily, # 30 tab, 0 Refill(s) Active 08/29/2013 [facility] benazepril 10 mg oral tablet 10 mg=1 tab, PO, BID, # 30 tab, 0 Refill(s) Active 08/29/2013 [facility] Allergies, Adverse Reactions, Alerts Substance Category Reaction Severity Reaction type Status Date Reported Comments Source iodine<sup>1</sup> Assertion Drug allergy Active 10/09/2013 Data migrated from [email or web address] on 11/10/14. Originally documented as IODINE. [facility] Adhesive<sup>2</sup> Assertion Drug allergy Active 12/10/2013 Data migrated from [email or web address] on 05/20/15. Originally documented as ADHESIVE PAPER. [facility] contrast media (iodine-based) Assertion Drug allergy Active [facility] Immunizations No Data Provided for This Section Results Order Name Results Value Reference Range Date Interpretation Comments Source URINE AND STOOL UA Urobilinogen <=1.0 mg/dL 0.1 - 1.0 11/26/2013 [facility] URINE AND STOOL UA RBC 7 0 - 2 11/26/2013 [facility] URINE AND STOOL UA Bacteria Occasional /HPF None Seen /HPF 11/26/2013 [facility] URINE AND STOOL UA WBC 56 0 - 5 11/26/2013 [facility] URINE AND STOOL UA Mucus Few /LPF None Seen /LPF 11/26/2013 [facility] URINE AND STOOL Micro? Performed *NA* (11/26/13 1:30 PM) 11/26/2013 [facility] URINE AND STOOL UA Color Yellow *NA* (11/26/13 1:30 PM) Yellow 11/26/2013 [facility] URINE AND STOOL UA Turbidity Slight *ABN* (11/26/13 1:30 PM) Clear 11/26/2013 [facility] URINE AND STOOL UA Spec Grav 1.011 <=1.030 11/26/2013 [facility] URINE AND STOOL UA Glucose Negative mg/dL Negative mg/dL 11/26/2013 [facility] URINE AND STOOL UA Ketones Negative mg/dL Negative mg/dL 11/26/2013 [facility] URINE AND STOOL UA Bili Negative *NA* (11/26/13 1:30 PM) Negative 11/26/2013 [facility] URINE AND STOOL UA Blood Small *ABN* (11/26/13 1:30 PM) Negative 11/26/2013 [facility] URINE AND STOOL UA Leuk Est Large *ABN* (11/26/13 1:30 PM) Negative 11/26/2013 [facility] URINE AND STOOL UA Sq Epi Many /LPF Few /LPF 11/26/2013 [facility] URINE AND STOOL UA Nitrite Negative (11/26/13 1:30 PM) Negative 11/26/2013 [facility] URINE AND STOOL UA pH 6.5 5.0 - 8.0 11/26/2013 [facility] URINE AND STOOL UA Protein Negative mg/dL Negative mg/dL 11/26/2013 [facility] BLOOD BANK RESULTS Antibody Scrn Negative (11/26/13 1:20 PM) 11/26/2013 [facility] BLOOD BANK RESULTS ABO/Rh O POS 11/26/2013 [facility] HEMATOLOGY MCH 30.5 27.0 - 31.0 11/26/2013 [facility] HEMATOLOGY Platelet 262 133 - 450 11/26/2013 [facility] HEMATOLOGY MPV 7.8 7.4 - 10.4 11/26/2013 [facility] HEMATOLOGY RDW 14.2 11.5 - 14.5 11/26/2013 [facility] HEMATOLOGY MCV 91.7 80.0 - 98.0 11/26/2013 [facility] HEMATOLOGY MCHC 33.2 32.0 - 36.0 11/26/2013 [facility] HEMATOLOGY Hct 42.2 36.0 - 48.0 11/26/2013 [facility] HEMATOLOGY Hgb 14.0 12.0 - 16.0 11/26/2013 [facility] HEMATOLOGY RBC 4.61 4.20 - 5.40 11/26/2013 [facility] HEMATOLOGY WBC 9.5 3.7 - 10.4 11/26/2013 [facility] HEMATOLOGY Basophils # 0.1 0.0 - 0.2 11/26/2013 [facility] HEMATOLOGY Eosinophils # 0.4 0.0 - 0.5 11/26/2013 [facility] HEMATOLOGY Segs-Bands # 5.7 1.5 - 8.1 11/26/2013 [facility] HEMATOLOGY Monocytes # 0.4 0.0 - 0.8 11/26/2013 [facility] HEMATOLOGY Lymphocytes # 2.9 1.0 - 5.5 11/26/2013 [facility] HEMATOLOGY Basophils 1.2 0.0 - 1.0 11/26/2013 [facility] HEMATOLOGY Segs 59.7 45.0 - 75.0 11/26/2013 [facility] HEMATOLOGY Eosinophils 3.8 0.0 - 4.0 11/26/2013 [facility] HEMATOLOGY Monocytes 4.5 2.0 - 12.0 11/26/2013 [facility] HEMATOLOGY Lymphocytes 30.8 20.0 - 40.0 11/26/2013 [facility] HEMATOLOGY INR 0.97 0.85 - 1.17 11/26/2013 <sup>3</sup>Interpretive Data: RECOMMENDED RANGES FOR PROTIME INR:
2.0-3.0 for most medical and surgical thromboembolic states.
2.5-3.5 for artificial heart valves and recurrent embolism.

INR SHOULD BE USED ONLY FOR PATIENTS ON STABLE ANTICOAGULANT THERAPY. [facility] HEMATOLOGY PTT 38.5 22.9 - 35.8 11/26/2013 <sup>5</sup>Interpretive Data: Heparin Therapeutic Range: 57 - 92 Seconds [facility] HEMATOLOGY PT 12.9 12.0 - 14.7 11/26/2013 [facility] ELECTROLYTES AGAP 11.4 10.0 - 20.0 11/06/2013 [facility] ELECTROLYTES Calcium Lvl 9.3 8.5 - 10.5 11/06/2013 [facility] ELECTROLYTES CO2 28 24 - 32 11/06/2013 [facility] ELECTROLYTES Chloride Lvl 105 95 - 109 11/06/2013 [facility] ELECTROLYTES BUN 10 7 - 22 11/06/2013 [facility] ELECTROLYTES Glucose Lvl 83 70 - 99 11/06/2013 <sup>2</sup>Interpretive Data: Adult reference range values reflect the clinical guidelines
of the [place] [employer]. [facility] ELECTROLYTES Potassium Lvl 4.4 3.5 - 5.1 11/06/2013 [facility] ELECTROLYTES Sodium Lvl 140 135 - 145 11/06/2013 [facility] ELECTROLYTES Creatinine Lvl 0.9 0.5 - 1.4 11/06/2013 [facility] ELECTROLYTES eGFR 69 11/06/2013 <sup>1</sup>Result Comment: The [...] should be multiplied by the estimated BMI. [facility] HEMATOLOGY Eosinophils 4.8 0.0 - 4.0 11/06/2013 [facility] HEMATOLOGY Basophils 0.7 0.0 - 1.0 11/06/2013 [facility] HEMATOLOGY Lymphocytes 33.6 20.0 - 40.0 11/06/2013 [facility] HEMATOLOGY Monocytes 5.3 2.0 - 12.0 11/06/2013 [facility] HEMATOLOGY Segs 55.6 45.0 - 75.0 11/06/2013 [facility] HEMATOLOGY Segs-Bands # 6.5 1.5 - 8.1 11/06/2013 [facility] HEMATOLOGY Eosinophils # 0.6 0.0 - 0.5 11/06/2013 [facility] HEMATOLOGY Monocytes # 0.6 0.0 - 0.8 11/06/2013 [facility] HEMATOLOGY Lymphocytes # 3.9 1.0 - 5.5 11/06/2013 [facility] HEMATOLOGY Basophils # 0.1 0.0 - 0.2 11/06/2013 [facility] HEMATOLOGY Platelet 291 133 - 450 11/06/2013 [facility] HEMATOLOGY MPV 8.2 7.4 - 10.4 11/06/2013 [facility] HEMATOLOGY RDW 14.3 11.5 - 14.5 11/06/2013 [facility] HEMATOLOGY MCHC 32.8 32.0 - 36.0 11/06/2013 [facility] HEMATOLOGY Hct 43.7 36.0 - 48.0 11/06/2013 [facility] HEMATOLOGY MCH 30.2 27.0 - 31.0 11/06/2013 [facility] HEMATOLOGY MCV 92.3 80.0 - 98.0 11/06/2013 [facility] HEMATOLOGY RBC 4.73 4.20 - 5.40 11/06/2013 [facility] HEMATOLOGY Hgb 14.3 12.0 - 16.0 11/06/2013 [facility] HEMATOLOGY WBC 11.7 3.7 - 10.4 11/06/2013 [facility] HEMATOLOGY PTT 35.2 22.9 - 35.8 11/06/2013 <sup>6</sup>Interpretive Data: Heparin Therapeutic Range: 57 - 92 Seconds [facility] HEMATOLOGY PT 12.1 12.0 - 14.7 11/06/2013 [facility] HEMATOLOGY INR 0.90 0.85 - 1.17 11/06/2013 <sup>4</sup>Interpretive Data: RECOMMENDED RANGES FOR PROTIME INR:
2.0-3.0 for most medical and surgical thromboembolic states.
2.5-3.5 for artificial heart valves and recurrent embolism.

INR SHOULD BE USED ONLY FOR PATIENTS ON STABLE ANTICOAGULANT THERAPY. [facility] Pathology Reports No Data Provided for This [...] RECOMMENDATION: Consider neurosurgical consultation. SL: KEYSHA 09/13/2017 [facility] Abdomen AP DX PROCEDURE: Supine abdomen [...] 1. No acute abdominal abnormality identified. SL: [id number] 09/13/2017 [facility] Brain wo contrast MRI EXAM: MRI [...] acute infarct or intracranial hemorrhage detected. SL: [id number] 08/16/2017 [facility] Carotid artery Doppler bilat US Patient Name: JOSE RIGGINS : 1950; Age: 66 years Female MR: [id number] Study: Carotid artery Doppler bilat US 08/16/2017 [...] occlusion High, low, or Variable undetectable SL: [id number] 08/16/2017 [facility] Consultation Notes No Data Provided for This Section Discharge Summaries No Data Provided for This Section History and Physicals No Data Provided for This Section Vital Signs Vital Sign Value Date Comments Source Diastolic (mm Hg) 73 11/26/2013 [facility] Systolic (mm Hg) 136 11/26/2013 [facility] Respitory Rate 20 11/26/2013 [facility] Heart Rate 99 11/26/2013 [facility] Systolic (mm Hg) 140 11/26/2013 [facility] Diastolic (mm Hg) 59 11/26/2013 [facility] Respitory Rate 12 11/26/2013 [facility] Diastolic (mm Hg) 82 11/26/2013 [facility] Systolic (mm Hg) 141 11/26/2013 [facility] Respitory Rate 13 11/26/2013 [facility] Heart Rate 83 11/26/2013 [facility] BMI Calculated 34.27 11/07/2013 [facility] Height 154.94 cm 11/07/2013 [facility] Weight 82.273 11/07/2013 [facility] Respitory Rate 19 09/04/2013 [facility] Diastolic (mm Hg) 60 09/04/2013 [facility] Systolic (mm Hg) 104 09/04/2013 [facility] Temperature Oral (F) 98.1 F 09/04/2013 [facility] Heart Rate 73 09/04/2013 [facility] Diastolic (mm Hg) 70 09/04/2013 [facility] Systolic (mm Hg) 105 09/04/2013 [facility] Respitory Rate 18 09/04/2013 [facility] Heart Rate 67 09/04/2013 [facility] Temperature Oral (F) 98.1 F 09/04/2013 [facility] Heart Rate 76 09/04/2013 [facility] Respitory Rate 17 09/04/2013 [facility] Systolic (mm Hg) 119 09/04/2013 [facility] Diastolic (mm Hg) 64 09/04/2013 [facility] Temperature Oral (F) 99.1 F 09/04/2013 [facility] Weight 79.545 08/29/2013 [facility] BMI Calculated 33.13 08/29/2013 [facility] Height 154.94 cm 08/29/2013 [facility] Encounters Location Location Details Encounter Type Encounter Number Reason For Visit Attending Provider ADM Date DC Date Status Source [facility] OBS Observation Patient [id number] Martir Tobias 09/03/2013 09/04/2013 [facility] OBS Day Surgery [id number] Joao Rangel Jr 11/26/2013 11/27/2013 [facility] Outpatient [id number] Nahed Palvadi 08/16/2017 08/17/2017 [facility] Outpatient [id number] Nahed Palvadi 09/13/2017 09/14/2017 [facility] Procedures Procedure Code Date Perfomer Comments Source Cholecystectomy [id number] [facility] Esophagogastroduodenoscopy [id number] [facility] Hysterectomy [id number] [facility] Operation [id number] [facility] Suspension of bladder [id number] [facility] Assessment and Plan Assessment and Plan Date Source Extracted from:Title: Discharge Summary - Intrathecal pump trial Author: Martir Tobias MD Date: 09/04/13 Discharge Summary Name: Jose Riggins Record Number: [id number] Admission Date: 09/03/2013 Discharge Date: 09/04/2013 Diagnoses: [...] trial The procedure was performed at at [facility] , The H&P was reviewed with patient [...] injection Fluoroscopic guidance for the above procedure [id number] ANESTHESIA: total intravenous anesthetic (TIVA) ESTIMATED BLOOD [...] mL total volume.AP and lateral fluoroscopic image accounting representative of intrathecal placement. Then 100mcg of [...] provider: Armond Vera Age: 62 year Address: [address] [place] [address] Primary Ins.: [facility] Chief Complaint back and generalized pain History of Present Illness Recent pain history: The patient presents to [facility] for intrathecal pump trial . The patient [...] Use: denies. 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 Review of Systems Constitutional: No fevers, chills, [...] in [address] Finn at [facility] 09/04/2013 [facility] Plan of Care No Data Provided for This Section Social History Social History Date Source Social History TypeResponse Smoking Status Current every day smoker; Type: Cigarettes; Lives with someone who smokes; Cigarette Smoking Last 365 Days No; Reg Smoking Cessation Counseling No entered on: 08/29/13 08/29/2013 [facility] Social History TypeResponse Smoking Status Current every day smoker, Type: Cigarettes, Exposure to Tobacco Smoke Lives with someone who smokes, Cigarette Smoking Last 365 Days No, Reg Smoking Cessation Counseling No 08/29/2013 [facility] Family History No Data Provided for This Section Advance Directives No Data Provided for This Section Functional Status No Data Provided for This Section
[2018-10-28] MEDS ORDERED: CEFTRIAXONE SOD 1 GM/NS 50 ML 50 ML IV ONE (21:00)
[2018-10-28] MEDS ORDERED: SODIUM CHLORIDE 0.9% 1000ML 1,000 ML IV SCH (21:00)
[2018-10-28] MEDS ORDERED: CEFTRIAXONE SOD 1 GM VIAL ONE (21:05)
[2018-10-28] MEDS ORDERED: SODIUM CHLORIDE 0.9% 100 ML 100 ML ONE (21:06)
--- NOTE | 2018-10-28 21:26 | Diagnostic Imaging Report ---
Right tibia and fibula 4 - views HISTORY: Cat scratch. COMPARISON: None FINDINGS: No displaced fracture. Osseous alignment is within normal limits. Mild degenerative changes of the medial compartment. Small soft tissue calcifications in the anterior knee just anterior to the patella. IMPRESSION: No acute osseous abnormality. Signed by: Dr. Izzy Gooden M.D. on 10/28/2018 9:23 PM
[2018-10-28 21:42] VITALS: BP 128/61
== END 2018-10-28 21:52 | disposition home or self-care (01) ==
LOC: FSED 19:21
DX: L03.115 Cellulitis of right lower limb (principal); W55.01XA Bitten by cat, initial encounter; Y92.008 Other place in unspecified non-institutional (private) residence as the place of occurrence of the external cause; I10 Essential (primary) hypertension; M79.7 Fibromyalgia; J44.9 Chronic obstructive pulmonary disease, unspecified; E03.9 Hypothyroidism, unspecified; Z86.73 Personal history of transient ischemic attack (TIA), and cerebral infarction without residual deficits; F17.210 Nicotine dependence, cigarettes, uncomplicated
CPT/HCPCS: 73590; 99283; J0696

== ENCOUNTER 2020-02-03 21:45 | Emergency (ER) | payer MEDICARE, OTHER ==
[~2020-02-03] VITALS: Ht 154.9 cm; Wt 80.3 kg
[2020-02-03] MEDS ORDERED: MOTRIN800 MG PO (23:50)
== END 2020-02-04 | disposition home or self-care (01) ==
LOC: FSED 22:00
DX: S80.11XA Contusion of right lower leg, initial encounter (principal); W22.09XA Striking against other stationary object, initial encounter; Y93.01 Activity, walking, marching and hiking; Y92.008 Other place in unspecified non-institutional (private) residence as the place of occurrence of the external cause; I10 Essential (primary) hypertension; J44.9 Chronic obstructive pulmonary disease, unspecified; E03.9 Hypothyroidism, unspecified; M79.7 Fibromyalgia; Z86.73 Personal history of transient ischemic attack (TIA), and cerebral infarction without residual deficits; F17.210 Nicotine dependence, cigarettes, uncomplicated
CPT/HCPCS: 99283

== ENCOUNTER 2022-08-22 21:09 | Inpatient (IN) | payer MEDICARE, OTHER ==
[~2022-08-22] VITALS: Ht 154.9 cm; Wt 80.5 kg
[~2022-08-22 21:09] MED LIST changes: +MOTRIN800 MG PO
[2022-08-22] MEDS ORDERED: SODIUM CHLORIDE 0.9% 1000ML 1,000 ML IV ONE (21:30)
[2022-08-22] MEDS ORDERED: CEFTRIAXONE 1 GM VIAL IV SCH (21:30)
[2022-08-22] MEDS ORDERED: CEFTRIAXONE 1 GM VIAL ONE (21:38)
[2022-08-22] MEDS ORDERED: ALBUTEROL/IPRATROPIUM 3 ML NEB NEB ONE (21:45)
[2022-08-22 22:14] LABS: BASOPHILS # (AUTO) 0.1 (0.0-0.1); BASOPHILS % 0.6 % (0.0-1.0); EOSINOPHILS # (AUTO) 0.4 (0.0-0.4); EOSINOPHILS % 3.2 % (0.0-6.0); HEMATOCRIT 46.4 % (34.2-44.1); HEMOGLOBIN 15.5 g/dL (12.0-16.0); LYMPHOCYTES # (AUTO) 2.2 (1.0-3.2); LYMPHOCYTES % 18.2 % (18.0-39.1); MEAN CORPUSCULAR HEMOGLOBIN 31.7 pg (28-32); MEAN CORPUSCULAR HGB CONC 33.4 g/dL (31-35); MEAN CORPUSCULAR VOLUME 94.9 fL (81-99); MONOCYTES % 8.4 % (4.4-11.3); NEUTROPHILS # (AUTO) 8.4 (2.1-6.9); NEUTROPHILS % 69.4 % (38.7-80.0); PLATELET COUNT 265 x10e3/uL (140-360); RED BLOOD COUNT 4.89 x10e6/uL (3.6-5.1)
[2022-08-22 22:18] LABS: CLARITY,URINE CLEAR (CLEAR); COLOR,URINE YELLOW (YELLOW); KETONES,URINE NEGATIVE (NEGATIVE); LEUKOCYTE ESTERASE ,URINE NEGATIVE (NEGATIVE); NITRITE,URINE NEGATIVE (NEGATIVE); PROTEIN,URINE DIPSTICK NEGATIVE (NEGATIVE); URINE UROBILINOGEN 0.2 mg/dL (0.2 - 1)
[2022-08-22 22:23] LABS: INR 0.9; PROTHROMBIN TIME 12.6 seconds (11.9-14.5)
[2022-08-22 22:24] LABS: PARTIAL THROMBOPLASTIN TIME 35.3 seconds (23.8-35.5)
[2022-08-22 22:31] LABS: BACTERIA,URINE FEW /HPF; EPITHELIAL CELLS,URINE FEW /LPF; RBC,URINE 0-5 /HPF (0-5); WBC,URINE (MAN) 0-5 /HPF (0-5)
[2022-08-22 22:37] LABS: ALANINE AMINOTRANSFERASE 12 IU/L (0-55); ALBUMIN 3.8 g/dL (3.5-5.0); ALKALINE PHOSPHATASE 89 IU/L (40-150); ANION GAP 16.6 mmol/L (8-16); BLOOD UREA NITROGEN 22 mg/dL (7-26); BUN/CREATININE RATIO 13 (6-25); CALCIUM 9.6 mg/dL (8.4-10.2); CARBON DIOXIDE 25 mmol/L (22-29); CHLORIDE 103 mmol/L (98-107); CREATININE, SERUM 1.66 mg/dL (0.57-1.11); GLUCOSE 129 mg/dL (74-118); POTASSIUM 3.6 mmol/L (3.5-5.1); SODIUM 141 mmol/L (136-145)
[2022-08-22 22:40] VITALS: PULSE 102; RESP 20; O2SAT 94
[2022-08-23] VITALS (11 sets, daily range): BP systolic 123–140; BP diastolic 62–72; PULSE 102–122; RESP 16–20; TEMP 98.3–98.6; O2SAT 93–99
[2022-08-23] MEDS ORDERED: ASPIRIN 81 MG CHEW TAB PO ONE
[2022-08-23] MEDS ORDERED: ONDANSETRON HCL INJ 2MG/ML 2ML 2 MG/ML VIAL IV PRN
[2022-08-23] MEDS: SODIUM CHLORIDE 0.9% 1000ML 1,000 ML IV SCH ×3 (00:02→15:29)
[2022-08-23] MEDS ORDERED: ACETAMINOPHEN 325 MG TAB ONE (03:40)
[2022-08-23] MEDS ORDERED: ACETAMINOPHEN 325 MG TAB PO ONE (03:45)
[2022-08-23 05:54] LABS: BASOPHILS # (AUTO) 0.1 (0.0-0.1); BASOPHILS % 0.7 % (0.0-1.0); EOSINOPHILS # (AUTO) 0.2 (0.0-0.4); EOSINOPHILS % 2.3 % (0.0-6.0); HEMATOCRIT 43.2 % (34.2-44.1); HEMOGLOBIN 14.2 g/dL (12.0-16.0); LYMPHOCYTES # (AUTO) 1.7 (1.0-3.2); LYMPHOCYTES % 17.7 % (18.0-39.1); MEAN CORPUSCULAR HEMOGLOBIN 31.3 pg (28-32); MEAN CORPUSCULAR HGB CONC 32.9 g/dL (31-35); MEAN CORPUSCULAR VOLUME 95.4 fL (81-99); MONOCYTES # (AUTO) 0.8 (0.2-0.8); MONOCYTES % 8.2 % (4.4-11.3); NEUTROPHILS % 70.9 % (38.7-80.0); PLATELET COUNT 229 x10e3/uL (140-360); RED BLOOD COUNT 4.53 x10e6/uL (3.6-5.1); RED CELL DISTRIBUTION WIDTH 13.9 % (11.7-14.4)
[2022-08-23 06:12] LABS: ALBUMIN/GLOBULIN RATIO 0.9 (0.8-2.0); ANION GAP 12.6 mmol/L (8-16); CALCIUM 8.9 mg/dL (8.4-10.2); CREATININE, SERUM 1.01 mg/dL (0.57-1.11); POTASSIUM 3.6 mmol/L (3.5-5.1)
[2022-08-23] MEDS ORDERED: ACETAMINOPHEN 325 MG TAB PO PRN (08:30)
[2022-08-23] MEDS ORDERED: SIMETHICONE 80 MG CHEW PO PRN (08:30)
[2022-08-23] MEDS: SENNOSIDES 8.6 MG TAB PO SCH (10:05)
[2022-08-23] MEDS: DOCUSATE SODIUM 100 MG CAP PO SCH (10:05)
[2022-08-23] MEDS: VENLAFAXINE HCL 75 MG CAPCR PO SCH (10:05)
[2022-08-23] MEDS: ALBUTEROL/IPRATROPIUM 3 ML NEB NEB PRN ×3 (10:45→22:00)
[2022-08-23] MEDS: BUDESONIDE 0.5MG/2 ML NEB INH SCH ×2 (10:45→18:35)
[2022-08-23] MEDS: ENOXAPARIN SOD INJ 40 MG/0.4 ML SYR SC SCH (17:39)
[2022-08-23] MEDS ORDERED: FLUTICASONE PROPIONATE 220MCG INH INH SCH (19:00)
[2022-08-23] MEDS: CEFDINIR 300 MG CAP PO SCH (20:53)
[2022-08-23] MEDS: BENZONATATE 100 MG CAP PO PRN (20:53)
[2022-08-23] MEDS: HYDROCODONE/APAP 7.5MG-325MG 1 EA TAB PO PRN (20:54)
[2022-08-23] MEDS ORDERED: CRESTOR 10MG PO SCH (21:00)
[2022-08-24] VITALS (13 sets, daily range): BP systolic 131–168; BP diastolic 73–101; PULSE 79–130; RESP 18–23; TEMP 98.2–98.9; O2SAT 94–100
[2022-08-24] MEDS: ALBUTEROL/IPRATROPIUM 3 ML NEB NEB PRN ×6 (02:35→20:51)
[2022-08-24] MEDS: BENZONATATE 100 MG CAP PO PRN ×3 (03:38→21:33)
[2022-08-24] MEDS: HYDROCODONE/APAP 7.5MG-325MG 1 EA TAB PO PRN ×3 (03:39→17:30)
[2022-08-24 05:02] LABS: BASOPHILS # (AUTO) 0.1 (0.0-0.1); BASOPHILS % 0.6 % (0.0-1.0); EOSINOPHILS # (AUTO) 0.1 (0.0-0.4); EOSINOPHILS % 0.4 % (0.0-6.0); HEMATOCRIT 46.8 % (34.2-44.1); HEMOGLOBIN 15.8 g/dL (12.0-16.0); MEAN CORPUSCULAR HEMOGLOBIN 31.2 pg (28-32); MEAN CORPUSCULAR HGB CONC 33.8 g/dL (31-35); MEAN CORPUSCULAR VOLUME 92.5 fL (81-99); MONOCYTES # (AUTO) 1.1 (0.2-0.8); MONOCYTES % 7.5 % (4.4-11.3); NEUTROPHILS # (AUTO) 10.8 (2.1-6.9); NEUTROPHILS % 76.9 % (38.7-80.0); PLATELET COUNT 282 x10e3/uL (140-360); RED BLOOD COUNT 5.06 x10e6/uL (3.6-5.1); RED CELL DISTRIBUTION WIDTH 13.8 % (11.7-14.4)
[2022-08-24 05:33] LABS: ALBUMIN 3.5 g/dL (3.5-5.0); ANION GAP 16.8 mmol/L (8-16); CALCIUM 9.2 mg/dL (8.4-10.2); CREATININE, SERUM 0.8 mg/dL (0.57-1.11); MAGNESIUM 1.7 MG/DL (1.3-2.1); POTASSIUM 2.8 mmol/L (3.5-5.1)
[2022-08-24] MEDS: BUDESONIDE 0.5MG/2 ML NEB INH SCH ×2 (06:42→20:00)
[2022-08-24] MEDS: LEVOTHYROXINE SODIUM 100 MCG TAB PO SCH (06:42)
[2022-08-24] MEDS ORDERED: POTASSIUM CHLORIDE 20 MEQ TAB CR PO ONE ×2 (09:00→11:00)
[2022-08-24] MEDS ORDERED: MAGNESIUM OXIDE 400 MG TAB PO ONE (09:00)
[2022-08-24] MEDS: CEFDINIR 300 MG CAP PO SCH ×2 (10:07→17:27)
[2022-08-24] MEDS: VENLAFAXINE HCL 75 MG CAPCR PO SCH (10:07)
[2022-08-24] MEDS: SENNOSIDES 8.6 MG TAB PO SCH (10:07)
[2022-08-24] MEDS: DOCUSATE SODIUM 100 MG CAP PO SCH (10:07)
[2022-08-24] MEDS ORDERED: ONDANSETRON HCL 4 MG ORAL DISINTEGRATING TAB PO PRN (11:30)
[2022-08-24] MEDS ORDERED: LACTATED RINGER'S 1,000 ML INJ SCH (12:45)
[2022-08-24 13:58] LABS: POTASSIUM 3.1 mmol/L (3.5-5.1)
[2022-08-24] MEDS ORDERED: LOPERAMIDE HCL 2 MG CAP PO PRN (14:30)
[2022-08-24] MEDS: ENOXAPARIN SOD INJ 40 MG/0.4 ML SYR SC SCH (17:26)
[2022-08-24] MEDS ORDERED: POTASSIUM CHLORIDE 20 MEQ TAB CR PO STA (20:44)
[2022-08-24] MEDS: MELATONIN 3 MG TAB PO SCH (22:54)
[2022-08-25] VITALS (12 sets, daily range): BP systolic 127–176; BP diastolic 61–98; PULSE 69–138; RESP 18–22; TEMP 98.1–99.4; O2SAT 95–100
[2022-08-25] MEDS: ALBUTEROL/IPRATROPIUM 3 ML NEB NEB PRN (03:40)
[2022-08-25] MEDS: BENZONATATE 100 MG CAP PO PRN (04:32)
[2022-08-25] MEDS: HYDROCODONE/APAP 7.5MG-325MG 1 EA TAB PO PRN ×3 (04:33→22:23)
[2022-08-25] MEDS: LEVOTHYROXINE SODIUM 100 MCG TAB PO SCH (04:37)
[2022-08-25 05:59] LABS: BASOPHILS # (AUTO) 0.1 (0.0-0.1); BASOPHILS % 0.8 % (0.0-1.0); EOSINOPHILS # (AUTO) 0.1 (0.0-0.4); EOSINOPHILS % 0.4 % (0.0-6.0); HEMATOCRIT 50.6 % (34.2-44.1); LYMPHOCYTES # (AUTO) 2.3 (1.0-3.2); LYMPHOCYTES % 16.1 % (18.0-39.1); MEAN CORPUSCULAR HEMOGLOBIN 31.3 pg (28-32); MEAN CORPUSCULAR HGB CONC 31.6 g/dL (31-35); MONOCYTES # (AUTO) 1.1 (0.2-0.8); MONOCYTES % 7.6 % (4.4-11.3); NEUTROPHILS # (AUTO) 10.5 (2.1-6.9); NEUTROPHILS % 74.3 % (38.7-80.0); PLATELET COUNT 299 x10e3/uL (140-360); RED BLOOD COUNT 5.11 x10e6/uL (3.6-5.1); RED CELL DISTRIBUTION WIDTH 14.1 % (11.7-14.4)
[2022-08-25] MEDS: BUDESONIDE 0.5MG/2 ML NEB INH SCH ×2 (06:20→19:45)
[2022-08-25 06:32] LABS: ALBUMIN 3.9 g/dL (3.5-5.0); ALBUMIN/GLOBULIN RATIO 1.1 (0.8-2.0); ANION GAP 19.7 mmol/L (8-16); CALCIUM 9.7 mg/dL (8.4-10.2); CREATININE, SERUM 0.79 mg/dL (0.57-1.11); MAGNESIUM 1.7 MG/DL (1.3-2.1); POTASSIUM 3.7 mmol/L (3.5-5.1)
[2022-08-25] MEDS ORDERED: IPRATROPIUM BROMIDE 0.02% 2.5 ML NEB NEB PRN (07:45)
[2022-08-25] MEDS ORDERED: LEVALBUTEROL HCL SOLN NEBU 1.25 MG/3 ML NEB INH PRN (07:45)
[2022-08-25] MEDS ORDERED: SODIUM CHLORIDE 0.9% 1000ML 1,000 ML IV SCH (08:30)
[2022-08-25] MEDS: SENNOSIDES 8.6 MG TAB PO SCH (09:00)
[2022-08-25] MEDS: DOCUSATE SODIUM 100 MG CAP PO SCH (09:00)
[2022-08-25] MEDS: GABAPENTIN 300 MG CAP PO SCH ×3 (09:38→21:07)
[2022-08-25] MEDS: PREDNISONE 20 MG TAB PO SCH (09:39)
[2022-08-25] MEDS: CARVEDILOL 12.5 MG TAB PO SCH ×2 (09:41→15:46)
[2022-08-25] MEDS: VENLAFAXINE HCL 75 MG CAPCR PO SCH (09:41)
[2022-08-25] MEDS: LOSARTAN POTASSIUM 100 MG TAB PO SCH (09:42)
[2022-08-25] MEDS: ASPIRIN 81 MG ENTERIC COATED PO SCH (09:42)
[2022-08-25] MEDS ORDERED: SODIUM CHLORIDE 0.9% 500ML 500 ML IV ONE (10:00)
[2022-08-25] MEDS ORDERED: BENZONATATE 100 MG CAP PO PRN (10:30)
[2022-08-25] MEDS ORDERED: LEVALBUTEROL HCL SOLN NEBU 1.25 MG/3 ML NEB INH SCH (12:00)
[2022-08-25] MEDS: NICOTINE 7 MG PATCH TOP SCH (12:37)
[2022-08-25] MEDS: LEVALBUTEROL HCL SOLN NEBU 1.25 MG/3 ML NEB INH SCH ×2 (13:30→19:45)
[2022-08-25] MEDS: IPRATROPIUM BROMIDE 0.02% 2.5 ML NEB NEB SCH ×2 (13:30→19:45)
[2022-08-25] MEDS: ENOXAPARIN SOD INJ 40 MG/0.4 ML SYR SC SCH (17:12)
[2022-08-25] MEDS: MELATONIN 3 MG TAB PO SCH (21:08)
[2022-08-25] MEDS: PRAMIPEXOLE DIHYDROCHLORIDE 0.25 MG TAB PO SCH (21:09)
[2022-08-26] VITALS (12 sets, daily range): BP systolic 106–153; BP diastolic 73–104; PULSE 94–115; RESP 17–23; TEMP 97.4–98.8; O2SAT 92–97
[2022-08-26] MEDS: LEVALBUTEROL HCL SOLN NEBU 1.25 MG/3 ML NEB INH SCH ×4 (00:35→18:30)
[2022-08-26] MEDS: IPRATROPIUM BROMIDE 0.02% 2.5 ML NEB NEB SCH ×4 (00:35→18:30)
[2022-08-26] MEDS: BENZONATATE 100 MG CAP PO PRN (04:46)
[2022-08-26] MEDS: LEVOTHYROXINE SODIUM 100 MCG TAB PO SCH (05:43)
[2022-08-26] MEDS: BUDESONIDE 0.5MG/2 ML NEB INH SCH ×2 (06:30→18:30)
[2022-08-26 06:31] LABS: BASOPHILS % 0.3 % (0.0-1.0); EOSINOPHILS % 0.1 % (0.0-6.0); HEMATOCRIT 42.6 % (34.2-44.1); HEMOGLOBIN 14.1 g/dL (12.0-16.0); LYMPHOCYTES # (AUTO) 2.3 (1.0-3.2); LYMPHOCYTES % 19.1 % (18.0-39.1); MEAN CORPUSCULAR HEMOGLOBIN 31.1 pg (28-32); MEAN CORPUSCULAR HGB CONC 33.1 g/dL (31-35); MEAN CORPUSCULAR VOLUME 93.8 fL (81-99); MONOCYTES % 8.5 % (4.4-11.3); NEUTROPHILS # (AUTO) 8.5 (2.1-6.9); NEUTROPHILS % 71.4 % (38.7-80.0); PLATELET COUNT 261 x10e3/uL (140-360); RED BLOOD COUNT 4.54 x10e6/uL (3.6-5.1); RED CELL DISTRIBUTION WIDTH 14.1 % (11.7-14.4)
[2022-08-26 06:50] LABS: ANION GAP 14.3 mmol/L (8-16); CALCIUM 8.7 mg/dL (8.4-10.2); CREATININE, SERUM 0.72 mg/dL (0.57-1.11); MAGNESIUM 1.7 MG/DL (1.3-2.1); POTASSIUM 3.3 mmol/L (3.5-5.1)
[2022-08-26] MEDS ORDERED: POTASSIUM CHLORIDE 20 MEQ TAB CR PO ONE (08:30)
[2022-08-26] MEDS: ASPIRIN 81 MG ENTERIC COATED PO SCH (09:00)
[2022-08-26] MEDS ORDERED: MAGNESIUM OXIDE 400 MG TAB PO ONE (09:00)
[2022-08-26] MEDS: VENLAFAXINE HCL 75 MG CAPCR PO SCH (09:01)
[2022-08-26] MEDS: PREDNISONE 20 MG TAB PO SCH (09:01)
[2022-08-26] MEDS: GABAPENTIN 300 MG CAP PO SCH ×3 (09:01→21:39)
[2022-08-26] MEDS: NICOTINE 7 MG PATCH TOP SCH (09:01)
[2022-08-26] MEDS: CARVEDILOL 12.5 MG TAB PO SCH ×2 (09:02→17:22)
[2022-08-26] MEDS: LOSARTAN POTASSIUM 100 MG TAB PO SCH (09:02)
[2022-08-26] MEDS ORDERED: POTASSIUM CHLORIDE 20MEQ/100ML 100 ML IV PRN (12:30)
[2022-08-26] MEDS ORDERED: PANTOPRAZOLE SOD 40 MG TABEC PO ONE (13:00)
[2022-08-26] MEDS: ENOXAPARIN SOD INJ 40 MG/0.4 ML SYR SC SCH (17:22)
[2022-08-26] MEDS: MELATONIN 3 MG TAB PO SCH (21:38)
[2022-08-26] MEDS: PRAMIPEXOLE DIHYDROCHLORIDE 0.25 MG TAB PO SCH (21:39)
[2022-08-26] MEDS: HYDROCODONE/APAP 7.5MG-325MG 1 EA TAB PO PRN (21:40)
[2022-08-27] VITALS (13 sets, daily range): BP systolic 134–149; BP diastolic 68–84; PULSE 86–110; RESP 16–19; TEMP 98.1–98.6; O2SAT 94–100
[2022-08-27] MEDS: LEVALBUTEROL HCL SOLN NEBU 1.25 MG/3 ML NEB INH SCH ×4 (00:30→19:30)
[2022-08-27] MEDS: IPRATROPIUM BROMIDE 0.02% 2.5 ML NEB NEB SCH ×4 (00:30→19:30)
[2022-08-27] MEDS: LEVOTHYROXINE SODIUM 100 MCG TAB PO SCH (05:56)
[2022-08-27 06:37] LABS: BASOPHILS % 0.2 % (0.0-1.0); EOSINOPHILS % 0.1 % (0.0-6.0); HEMATOCRIT 43.8 % (34.2-44.1); HEMOGLOBIN 14.6 g/dL (12.0-16.0); LYMPHOCYTES % 22.2 % (18.0-39.1); MEAN CORPUSCULAR HEMOGLOBIN 30.9 pg (28-32); MEAN CORPUSCULAR HGB CONC 33.3 g/dL (31-35); MEAN CORPUSCULAR VOLUME 92.8 fL (81-99); MONOCYTES # (AUTO) 0.8 (0.2-0.8); MONOCYTES % 6.3 % (4.4-11.3); NEUTROPHILS # (AUTO) 9.4 (2.1-6.9); NEUTROPHILS % 70.8 % (38.7-80.0); PLATELET COUNT 271 x10e3/uL (140-360); RED BLOOD COUNT 4.72 x10e6/uL (3.6-5.1); RED CELL DISTRIBUTION WIDTH 13.9 % (11.7-14.4)
[2022-08-27 06:49] LABS: ALBUMIN 3.5 g/dL (3.5-5.0); ALBUMIN/GLOBULIN RATIO 1.3 (0.8-2.0); ANION GAP 13.5 mmol/L (8-16); CALCIUM 9.2 mg/dL (8.4-10.2); CREATININE, SERUM 0.72 mg/dL (0.57-1.11); MAGNESIUM 1.9 MG/DL (1.3-2.1); POTASSIUM 3.5 mmol/L (3.5-5.1)
[2022-08-27] MEDS: BUDESONIDE 0.5MG/2 ML NEB INH SCH ×2 (07:15→19:30)
[2022-08-27] MEDS: LOSARTAN POTASSIUM 100 MG TAB PO SCH (08:59)
[2022-08-27] MEDS: ASPIRIN 81 MG ENTERIC COATED PO SCH (09:00)
[2022-08-27] MEDS: PANTOPRAZOLE SOD 40 MG TABEC PO SCH (09:00)
[2022-08-27] MEDS: PREDNISONE 20 MG TAB PO SCH (09:00)
[2022-08-27] MEDS: CARVEDILOL 12.5 MG TAB PO SCH ×2 (09:00→17:15)
[2022-08-27] MEDS: GABAPENTIN 300 MG CAP PO SCH ×3 (09:00→20:36)
[2022-08-27] MEDS: VENLAFAXINE HCL 75 MG CAPCR PO SCH (09:01)
[2022-08-27] MEDS: NICOTINE 7 MG PATCH TOP SCH (09:01)
[2022-08-27] MEDS: AZITHROMYCIN 250 MG TAB PO SCH (09:01)
[2022-08-27] MEDS: HYDROCODONE/APAP 7.5MG-325MG 1 EA TAB PO PRN ×2 (12:08→21:43)
[2022-08-27] MEDS: ENOXAPARIN SOD INJ 40 MG/0.4 ML SYR SC SCH (17:15)
[2022-08-27] MEDS: MELATONIN 3 MG TAB PO SCH (20:35)
[2022-08-27] MEDS: PRAMIPEXOLE DIHYDROCHLORIDE 0.25 MG TAB PO SCH (20:37)
[2022-08-28] VITALS (10 sets, daily range): BP systolic 149–171; BP diastolic 78–97; PULSE 82–99; RESP 15–20; TEMP 97.6–99; O2SAT 94–100
[2022-08-28] MEDS: LEVALBUTEROL HCL SOLN NEBU 1.25 MG/3 ML NEB INH SCH ×3 (00:25→13:37)
[2022-08-28] MEDS: IPRATROPIUM BROMIDE 0.02% 2.5 ML NEB NEB SCH ×3 (00:25→13:37)
[2022-08-28] MEDS: LEVOTHYROXINE SODIUM 100 MCG TAB PO SCH (05:57)
[2022-08-28 06:17] LABS: BASOPHILS # (AUTO) 0.1 (0.0-0.1); BASOPHILS % 0.4 % (0.0-1.0); EOSINOPHILS % 0.3 % (0.0-6.0); HEMATOCRIT 44.9 % (34.2-44.1); HEMOGLOBIN 15.5 g/dL (12.0-16.0); LYMPHOCYTES # (AUTO) 3.5 (1.0-3.2); LYMPHOCYTES % 28.7 % (18.0-39.1); MEAN CORPUSCULAR HEMOGLOBIN 31.5 pg (28-32); MEAN CORPUSCULAR HGB CONC 34.5 g/dL (31-35); MEAN CORPUSCULAR VOLUME 91.3 fL (81-99); MONOCYTES # (AUTO) 0.7 (0.2-0.8); MONOCYTES % 5.5 % (4.4-11.3); NEUTROPHILS # (AUTO) 7.8 (2.1-6.9); NEUTROPHILS % 64.4 % (38.7-80.0); PLATELET COUNT 267 x10e3/uL (140-360); RED BLOOD COUNT 4.92 x10e6/uL (3.6-5.1); RED CELL DISTRIBUTION WIDTH 13.8 % (11.7-14.4)
[2022-08-28 06:49] LABS: ANION GAP 13.8 mmol/L (8-16); CALCIUM 9.1 mg/dL (8.4-10.2); CREATININE, SERUM 0.71 mg/dL (0.57-1.11); MAGNESIUM 1.9 MG/DL (1.3-2.1)
[2022-08-28 07:02] LABS: POTASSIUM 2.8 mmol/L (3.5-5.1)
[2022-08-28] MEDS: BUDESONIDE 0.5MG/2 ML NEB INH SCH (07:29)
[2022-08-28] MEDS: PANTOPRAZOLE SOD 40 MG TABEC PO SCH ×2 (07:51→08:17)
[2022-08-28] MEDS: ASPIRIN 81 MG ENTERIC COATED PO SCH (08:17)
[2022-08-28] MEDS: VENLAFAXINE HCL 75 MG CAPCR PO SCH (08:17)
[2022-08-28] MEDS: NICOTINE 7 MG PATCH TOP SCH (08:17)
[2022-08-28] MEDS: LOSARTAN POTASSIUM 100 MG TAB PO SCH (08:17)
[2022-08-28] MEDS: AZITHROMYCIN 250 MG TAB PO SCH (08:17)
[2022-08-28] MEDS: GABAPENTIN 300 MG CAP PO SCH ×2 (08:17→15:42)
[2022-08-28] MEDS: PREDNISONE 20 MG TAB PO SCH (08:18)
[2022-08-28] MEDS: CARVEDILOL 12.5 MG TAB PO SCH ×2 (08:18→16:49)
[2022-08-28] MEDS ORDERED: POTASSIUM CHLORIDE 10MEQ EA PO ONE ×2 (09:15→12:00)
[2022-08-28] MEDS: HYDROCODONE/APAP 7.5MG-325MG 1 EA TAB PO PRN (11:32)
[2022-08-28] MEDS ORDERED: LOPERAMIDE HCL 2 MG CAP PO PRN (11:45)
[2022-08-28] MEDS ORDERED: LEVOTHYROXINE150 MCG PO (14:41)
[2022-08-28] MEDS ORDERED: COZAAR100 MG PO (14:41)
[2022-08-28] MEDS ORDERED: NICODERM CQ1 EACH TOP (14:41)
[2022-08-28] MEDS ORDERED: MIRAPEX0.25 MG PO (14:41)
[2022-08-28] MEDS ORDERED: COREG12.5 MG PO (14:41)
[2022-08-28] MEDS ORDERED: PREDNISONE20 MG PO (14:41)
[2022-08-28] MEDS ORDERED: IMODIUM2 MG PO (14:41)
[2022-08-28] MEDS ORDERED: VENLAFAXINE HCL 75 MG PO (14:41)
[2022-08-28] MEDS ORDERED: POTASSIUM CHLO20 ME1 PO (16:19)
[2022-08-28] MEDS: ENOXAPARIN SOD INJ 40 MG/0.4 ML SYR SC SCH (16:49)
== END 2022-08-28 17:29 | disposition home or self-care (01) | DRG 871 ==
LOC: ER 21:20 → ERHOLD 23:48 → MED/SURG2 08-23 08:46 → OBSVTOIN 08-24 09:36
PROVIDERS: ADMIT Internal Medicine; ATTEND Internal Medicine
PROC: 02HV33Z Insertion of Infusion Device into Superior Vena Cava, Percutaneous Approach (ICD-10-PCS; principal; 2022-08-25)
PROC: B548ZZA Ultrasonography of Superior Vena Cava, Guidance (ICD-10-PCS; 2022-08-25)
DX: A41.9 Sepsis, unspecified organism (principal); I50.33 Acute on chronic diastolic (congestive) heart failure; J18.9 Pneumonia, unspecified organism; N17.9 Acute kidney failure, unspecified; J44.1 Chronic obstructive pulmonary disease with (acute) exacerbation; J44.0 Chronic obstructive pulmonary disease with (acute) lower respiratory infection; M62.82 Rhabdomyolysis; R65.20 Severe sepsis without septic shock; E87.6 Hypokalemia; R00.0 Tachycardia, unspecified; E87.70 Fluid overload, unspecified; R53.1 Weakness; J20.9 Acute bronchitis, unspecified; R60.0 Localized edema; E78.2 Mixed hyperlipidemia; E03.9 Hypothyroidism, unspecified; F33.41 Major depressive disorder, recurrent, in partial remission; W18.39XA Other fall on same level, initial encounter; Y92.009 Unspecified place in unspecified non-institutional (private) residence as the place of occurrence of the external cause; M79.7 Fibromyalgia; K21.9 Gastro-esophageal reflux disease without esophagitis; E66.09 Other obesity due to excess calories; Z68.33 Body mass index [BMI] 33.0-33.9, adult; G89.4 Chronic pain syndrome; I11.0 Hypertensive heart disease with heart failure; R29.6 Repeated falls; R19.7 Diarrhea, unspecified; D72.829 Elevated white blood cell count, unspecified; M54.9 Dorsalgia, unspecified; F17.200 Nicotine dependence, unspecified, uncomplicated; Z96.89 Presence of other specified functional implants; R39.15 Urgency of urination; G47.33 Obstructive sleep apnea (adult) (pediatric); N39.43 Post-void dribbling; F41.9 Anxiety disorder, unspecified; I25.10 Atherosclerotic heart disease of native coronary artery without angina pectoris; Z96.659 Presence of unspecified artificial knee joint; Z87.440 Personal history of urinary (tract) infections; Z79.82 Long term (current) use of aspirin; Z79.890 Hormone replacement therapy; Z79.899 Other long term (current) drug therapy; Z91.041 Radiographic dye allergy status; Z90.49 Acquired absence of other specified parts of digestive tract; Z83.3 Family history of diabetes mellitus; Z82.49 Family history of ischemic heart disease and other diseases of the circulatory system; Z20.822 Contact with and (suspected) exposure to COVID-19
CPT/HCPCS: 0223U; 36415; 36569; 70450; 71045; 71250; 80048; 80053; 81001; 82550; 82553; 83605; 83630; 83735; 83880; 83993; 84132; 84443; 84484; 85025; 85610; 85730; 87040; 87045; 87070; 87086; 87177; 87205; 87324; 87328; 87449; 93005; 93306; 94060; 94640; 94799; 96360; 99283; G0378; J0696; J1650; J7030; J7040; J7050; J7512; Q0162